=== PATIENT | female | born 1985 | race Caucasian/White ===

== ENCOUNTER → 2017-06-30 15:08 | Outpatient (CLI) | payer MEDICARE, OTHER, SELFPAY ==
[2017-06-30 17:31] LABS: Hematocrit 36.4 % (37-47); Hemoglobin 11.6 g/dl (12.0-15.0); Mean Corp Hgb Conc 31.9 g/gl (32-36); Mean Corpuscular Hgb 29.4 pg (27.0-32.0); Mean Corpuscular Volume 92.4 fL (81-99); Mean Platelet Vol. 10.2 fl (6.2-12.0); Platelet Count 324 K/mm3 (150-450); RBC Distribution Width CV 13.6 % (11.6-14.6); RBC Distribution Width SD 45.3 fl (35.1-43.9); Red Blood Count 3.94 M/mm3 (4.2-5.4); White Blood Count 4.7 K/mm3 (4.4-11.0)
[2017-06-30 17:34] LABS: Scan Indicated on CBC? Y/N NO
[2017-06-30 17:52] LABS: Vitamin D,25 Hydroxy 13.6 ng/mL (19.95-100.01)
[2017-06-30 17:53] LABS: CRP < 2.90 mg/L (0.0-3.0); Iron 50 ug/dL (50-170)
== END ==
PROVIDERS: Visit Provider Internal Medicine Gastroenterology
DX: K52.9 Noninfective gastroenteritis and colitis, unspecified (principal)
CPT/HCPCS: 36415; 82306; 83540; 85027; 86140

== ENCOUNTER → 2018-02-02 13:48 | Outpatient (CLI) | payer MEDICARE, OTHER, SELFPAY ==
[2018-02-09 20:07] LABS: QNTFERON TB Ag Minus Nil Value < 0 IU/mL (.); QNTFERON TB Ag Value 0.02 IU/mL (.); QNTFERON TB Mitogen Value 6.59 IU/mL (.); QNTFERON TB Nil Value 0.03 IU/mL (.)
[2018-02-10 12:06] LABS: QNTIFERON TB Gold Negative (Negative)
== END ==
PROVIDERS: Referring Provider Internal Medicine Gastroenterology; Visit Provider Internal Medicine Gastroenterology
DX: K51.90 Ulcerative colitis, unspecified, without complications (principal)
CPT/HCPCS: 36415; 86480

== ENCOUNTER → 2018-02-23 10:24 | Outpatient (CLI) | payer MEDICARE, OTHER, SELFPAY ==
[2018-02-23 10:43] VITALS: BP 101/85; PULSE 77; RESP 16; TEMP 36.8; O2SAT 100; BMI 14.3
[2018-02-23] MEDS: MethylPREDNISolone 125 MG/2 ML Vial 60 MG IV (11:22)
[2018-02-23] MEDS: DiphenhydrAMINE 50 MG/ML Syringe 25 MG IV (12:30)
== END ==
PROVIDERS: Referring Provider Internal Medicine Gastroenterology; Visit Provider Internal Medicine Gastroenterology
DX: K51.90 Ulcerative colitis, unspecified, without complications (principal)
CPT/HCPCS: 96365; 96375; 96376; J7040; J7050; A4216; J3380

== ENCOUNTER 2018-02-25 18:48 | Inpatient (IN) | payer MEDICARE, OTHER, SELFPAY ==
[2018-02-25 18:49] VITALS: BP 111/96; PULSE 83; RESP 16; TEMP 36.8; O2SAT 100; BMI 14.3
[2018-02-25 19:06] LABS: Bacteria 0 SEEN /hpf (None Seen); Mucous, Urine 0 SEEN /hpf (<or=2+); Red Blood Cells-Urine 0 SEEN /hpf (0-5); Squamous Epithelial Cells - UA 0 SEEN /hpf (5-10); White Blood Cells 0 SEEN /hpf (0-5)
[2018-02-25 19:08] LABS: Color, Urine Yellow (Yellow); Glucose, Dipstick Normal (Normal); Ketone-Dipstick 50 mg/dl (Negative); Leukocyte Esterase-Dipstick Negative /ul (Negative); Nitrite-Dipstick Negative (Negative); Occult Blood-Urine Negative /ul (Negative); Protein-Dipstick Negative (Negative); Specific Gravity, Urine 1.015 (1.002-1.030); Urine Bilirubin Dipstick Negative (Negative); Urine Clarity Cloudy (Clear); Urine Urobilinogen Normal (Normal)
--- NOTE | 2018-02-25 19:09 | ED.VISSUMM ---
- ER Visit Summary Date of Service: 02/25/18 Chief Complaint: Abdominal pain with bloody diarrhea History of Present Illness: The patient is a 32 F history of ulcerative colitis past 13 years. Under the care currently of Dr. Amador of gastroenterology. She had her first IV infusion on Monday. For the last week she has had loose to watery stools with bright red blood. She denies any vaginal bleeding or discharge. She denies any dysuria. She has had episodes like this before with her ulcerative colitis. She also has a history of endometriosis. She has had a prior cholecystectomy. She had a prior ileostomy with reversal. Physical Examination: Young female. Vital signs are stable. She is afebrile. She does not look septic or toxic. She is very thin. Cachectic and wasted. H EENT exam unremarkable. Moist mucous membranes. Neck nontender. No lymphadenopathy. Lungs clear to auscultation bilaterally. Heart regular rhythm rate about 80 no murmur. Abdomen is soft. Nondistended. Normal bowel sounds. No peritoneal signs. She is tender in the very low lower quadrants bilaterally. No hernias. No masses. No McBurney's point tenderness. No English sign. No signs of obstruction. She is moving all 4 extremities. They are neurovascularly intact. Her legs are thin and wasted. There is muscular atrophy. Skin is pale. Back nontender. Neurologically she is awake and alert with no focal motor deficits. Test Results: CBC shows a white count of 5. Hemoglobin of 12. Previously the hemoglobin was around 11 6. Chemistries normal. Gap 7. Normal BUN and creatinine. Liver enzymes unremarkable except for alk phos of 125. UA normal. Except for urine ketones consistent with dehydration. Serum test negative. Emergency Department Course and Treatment: Patient treated with IV fluids. IV Zofran and morphine for pain and nausea. Treatment Plan: Repeat exams the patient is doing some better after IV fluids and IV Zofran. I have both the hospitalist and the patient's outplacement consultant on page. Disposition: Admission Impression: Acute exacerbation of ulcerative colitis. Acute nausea, vomiting and bloody diarrhea Acute abdominal pain This note was generated with RTF Logication software. It may contain incorrect words, spelling, and punctuation that were not noted in review of the chart prior to signing ED Disposition - Plan for ED Patient: Chief Complaint: Abd Pain Referrals: [facility] Doctor,Out of [Primary Care Provider] -
--- NOTE | 2018-02-25 19:12 | ED.DCSUM_ITS ---
- ER Visit Summary Date of Service: 02/25/18 Chief Complaint: Abdominal pain with bloody diarrhea History of Present Illness: The patient is a 32 F history of ulcerative colitis past 13 years. Under the care currently of Dr. Amador of gastroenterology. She had her first IV infusion on Monday. For the last week she has had loose to watery stools with bright red blood. She denies any vaginal bleeding or discharge. She denies any dysuria. She has had episodes like this before with her ulcerative colitis. She also has a history of endometriosis. She has had a prior cholecystectomy. She had a prior ileostomy with reversal. Physical Examination: Young female. Vital signs are stable. She is afebrile. She does not look septic or toxic. She is very thin. Cachectic and wasted. H EENT exam unremarkable. Moist mucous membranes. Neck nontender. No lymphadenopathy. Lungs clear to auscultation bilaterally. Heart regular rhythm rate about 80 no murmur. Abdomen is soft. Nondistended. Normal bowel sounds. No peritoneal signs. She is tender in the very low lower quadrants bilaterally. No hernias. No masses. No McBurney's point tenderness. No English sign. No signs of obstruction. She is moving all 4 extremities. They are neurovascularly intact. Her legs are thin and wasted. There is muscular atrophy. Skin is pale. Back nontender. Neurologically she is awake and alert with no focal motor deficits. Test Results: CBC shows a white count of 5. Hemoglobin of 12. Previously the hemoglobin was around 11 6. Chemistries normal. Gap 7. Normal BUN and creatinine. Liver enzymes unremarkable except for alk phos of 125. UA normal. Except for urine ketones consistent with dehydration. Serum test negative. Emergency Department Course and Treatment: Patient treated with IV fluids. IV Zofran and morphine for pain and nausea. Treatment Plan: Repeat exams the patient is doing some better after IV fluids and IV Zofran. I have both the hospitalist and the patient's education counselor on page. Disposition: Admission Impression: Acute exacerbation of ulcerative colitis. Acute nausea, vomiting and bloody diarrhea Acute abdominal pain This note was generated with Evriation software. It may contain incorrect words, spelling, and punctuation that were not noted in review of the chart prior to signing ED Disposition - Plan for ED Patient: Chief Complaint: Abd Pain Referrals: [facility] Doctor,Out of [Primary Care Provider] -
[2018-02-25 19:20] LABS: Amorphous Sediment 2+
[2018-02-25] MEDS: Morphine 4 MG/ML Syringe IV ×2 (19:23→21:19)
[2018-02-25] MEDS: 0.9% Normal Saline 1,000 ML 1000 ML IV (19:23)
[2018-02-25] MEDS: Ondansetron 4 MG/2 ML Vial IV ×3 (19:23→23:09)
[2018-02-25 19:30] LABS: Absolute Lymphocyte Count 1.42 X10^3/ul (0.83-4.51); Absolute Neutrophil Count 3.6 X10^3/uL (2.0-7.7); Basophil# 0.04 X10^3/uL; Basophil% 0.7 % (0-1); Eosinophil# 0.13 X10^3/uL; Eosinophils% 2.3 % (0-5); Hematocrit 38.6 % (37-47); Hemoglobin 12.1 g/dl (12.0-15.0); Lymphocyte # 1.42 X10^3/ul (4.0); Mean Corp Hgb Conc 31.3 g/gl (32-36); Mean Corpuscular Volume 89.4 fL (81-99); Mean Platelet Vol. 8.9 fl (6.2-12.0); Monocyte# 0.51 X10^3/uL; Neutrophil # 3.56 X10^3/uL (2.7-7.7); Neutrophil % 62.6 % (47-70); Platelet Count 398 K/mm3 (150-450); RBC Distribution Width CV 13.6 % (11.6-14.6); RBC Distribution Width SD 44.7 fl (35.1-43.9); Red Blood Count 4.32 M/mm3 (4.2-5.4); White Blood Count 5.7 K/mm3 (4.4-11.0)
[2018-02-25 19:31] LABS: POSITIVE COUNT NO; POSITIVE DIFFERENTIAL NO; POSITIVE MORPHOLOGY NO
[2018-02-25 19:48] LABS: AST(SGOT) 20 U/L (15-37); Alanine Aminotransfer ALT/SGPT 17 U/L (13-56); Albumin, Serum 3.4 g/dL (3.2-5.0); Alkaline Phosphatase 125 U/L (45-117); Anion Gap 7 (5-15); BUN 4 mg/dL (7-18); BUN/Creat Ratio 6.2 RATIO (10-20); Bilirubin, Direct 0.09 mg/dL (0.00-0.30); Calcium,Total 8.5 mg/dL (8.5-10.1); Chloride 103 mmol/L (98-107); Creatinine, Serum 0.65 mg/dL (0.55-1.02); EST Glomerular Filtration Rate 112 mL/min (>60); Est Glom Filt Rate - Afr Amer 136 mL/min (>60); Estimated Creatinine Clearance 82.61 ml/min; Globulin 4.3 g/dL (2.2-4.2); Glucose 74 mg/dL (74-106); Lipase 96 U/L (73-393); Potassium 3.6 mmol/L (3.5-5.1); Protein, Total 7.7 g/dL (6.4-8.2); Sodium Level 137 mmol/L (136-145)
[2018-02-25 19:54] LABS: Pregnancy, Serum, hCG Quali. NEGATIVE Negative (0-9 Nonpreg)
--- NOTE | 2018-02-25 20:24 | PCM.HP.STD ---
Problem List (1) Exacerbation of ulcerative colitis Status: Acute (2) Endometritis Status: Acute History of Present Illness Date of Admission: 02/25/18 Chief Complaint: Nausea, vomiting and diarrhea. The patient is a 32 year old F with a significant history of endometritis and ulcerative colitis who presents with one and half weeks history of progressively worsening diarrhea. Patient reports loose bowel movement every 20-30 minutes. She reports that at times she is unable to get into the bathroom quickly to defecate so she has had to wear depends. Associated with her symptoms is nausea, vomiting and abdominal pain. She describes her abdominal pain as crampy and sharp; more pronounced in her left lower quadrant to pelvic area. Two days before her admission she was started on Entyvio infusion. She also received a Solu-Medrol (?infusion) on the same day. Patient reported that she was on a tapering dose of prednisone but because of worsening of her symptoms she was started back on Prednisone 30mg daily about 6 days ago. She sees Dr. Amador. ED doctor discussed the case with Dr. Amador and it is okay for Dr. Amador for patient to be initiated on steroids; and to call as necessary. Patient reported that previously she had an ileostomy but her ileostomy was reversed about 2 years ago. She reports that because of diarrhea she is unable to keep any weight on. Reports that because she is under weight she has not had her menses in the last 1-1/2 year. Past Medical History Medical History: Medical History (Last Reviewed 02/26/18 @ 09:04 by Alexander Koehler MD) Endometriosis N80.9 Ulcerative colitis K51.90 Allergies metoclopramide [From Reglan] Allergy (Verified 02/23/18 10:39) Other NEUROMUSCULAR PROBLEMS amoxicillin [From Augmentin] Adverse Reaction (Verified 02/23/18 10:39) Nausea/Vom/Diarrhea clavulanic acid [From Augmentin] Adverse Reaction (Verified 02/23/18 10:39) Nausea/Vom/Diarrhea Home Medications: Ambulatory Orders Medication Instructions Recorded Acetaminophen [Tylenol Extra 500 - 1,000 mg PO Q6H PRN PRN 02/25/18 Strength] Diphenoxylate/Atrop [Lomotil] 2 tab PO PRN PRN 02/25/18 Eszopiclone 1 mg PO QHS 02/25/18 Ondansetron [Zofran Odt] 4 mg PO 4X/DAY PRN PRN 02/25/18 Prednisone 30 mg PO DAILY 02/25/18 Surgical History: - - Ileostomy with subsequent reversal Lives: With Family Smoking Status: Never smoker Alcohol: Occasional - *Family History Maternal Family History: Family History (Last Updated 02/25/18 @ 22:14 by Alexander Koehler MD) Father Hypertension Paternal Family History: Family History (Last Updated 02/25/18 @ 22:14 by Alexander Koehler MD) Father Hypertension Review of Systems Constitutional: Reports: Anorexia. Denies: Chills, Fever HEENT: Denies: Head Aches, Sinus Congestion, Sinus Drainage Cardiovascular: Denies: Chest Pain, Palpitations Respiratory: Denies: Cough, Shortness of breath at rest, Sputum production Gastrointestinal: Reports: Abdominal Pain, Diarrhea, Nausea, Vomiting Genitourinary: Denies: Dysuria Musculoskeletal: Denies: Joint Pain, Joint Tenderness Skin: Denies: Rash, Wounds Neurological: Denies: Numbness, Tingling, Focal weakness Psychiatric: Denies: Anxiety, Depression, Homicidal Ideations, Suicidal Ideations Hematologic/ Lymphatic: Denies: Easy Bruising, Easy Bleeding VTE Information - Inpt Only VTE Present on Admission: No VTE Mechan Device Prophylaxis: None VTE Pharm Prophylaxis ordered?: Yes Patient Problems: Active and Suspected Problems (Last Updated 02/25/18 @ 22:13 by Alexander Koehler MD) Exacerbation of ulcerative colitis (Acute) Endometritis (Acute) - Physical Exam General: Alert, Oriented x3, Cooperative, - - Cachectic HEENT: Atraumatic, PERRLA, EOMI, Normocephalic Neck: Supple, No JVD, Negative Carotid Bruits Lungs: Clear to auscultation, Normal air movement Cardiovascular: Regular rate, No murmurs Abdomen: Bowel Sounds Present - Hyperbaric, Soft, Tender - Tender in bilateral lower abdomen, - - Scaphoid abdomen Extremities: No edema, Capillary Refill Less than 3 Seconds Skin: No rashes, No breakdown Musculoskeletal: No Tenderness to Palpation of Joints or Extremities Neurological: Cranial nerves II-XII grossly intact Psych/Mental Status: Normal Affect, Appropriate, - - The patient was crying secondary to pain and emotion due to her chronic disease. Vital Signs Temp Pulse Resp BP Pulse Ox 98.3 F 83 16 111/96 H 100 02/25/18 18:49 02/25/18 18:49 02/25/18 18:49 02/25/18 18:49 02/25/18 18:49 Oxygen Delivery Method Room Air Weight: 41.73 kg Body Mass Index (BMI) 14.3 Laboratory Tests Past 24 Hrs 02/25/18 02/25/18 02/25/18 19:00 19:20 19:20 WBC 5.7 RBC 4.32 Hgb 12.1 Hct 38.6 MCV 89.4 MCH 28.0 MCHC 31.3 L RDW 13.6 RDW Differential 44.7 H Plt Count 398 MPV 8.9 Immature Gran % (Auto) 0.400 Neut % (Auto) 62.6 Lymph % (Auto) 25.0 [place] % (Auto) 9.0 Eos % (Auto) 2.3 Baso % (Auto) 0.7 Absolute Neuts (auto) 3.6 Absolute Lymphs (auto) 1.42 Total Counted Not Reportable Sodium 137 Potassium 3.6 Chloride 103 Carbon Dioxide 27.0 Anion Gap 7 BUN 4 L Creatinine 0.65 Estim Creat Clear Calc 82.61 Est GFR (MDRD) Af Amer 136 Est GFR (MDRD) Non-Af 112 BUN/Creatinine Ratio 6.2 L Glucose 74 Calcium 8.5 Total Bilirubin 0.40 Direct Bilirubin 0.09 AST 20 ALT 17 Alkaline Phosphatase 125 H Total Protein 7.7 Albumin 3.4 Globulin 4.3 H Lipase 96 Serum , Qual Urine Color Yellow Urine Clarity Cloudy Urine pH 9.0 Ur Specific [place] 1.015 Urine Protein Negative Urine Glucose (UA) Normal Urine Ketones 50 H Urine Occult Blood Negative Urine Nitrite Negative Urine Bilirubin Negative Urine Urobilinogen Normal Ur Leukocyte Esterase Negative Urine RBC 0 SEEN Urine WBC 0 SEEN Ur Squamous Epith Cells 0 SEEN Amorphous Sediment 2+ Urine Bacteria 0 SEEN Urine Mucus 0 SEEN 02/25/18 19:20 WBC RBC Hgb Hct MCV MCH MCHC RDW RDW Differential Plt Count MPV Immature Gran % (Auto) Neut % (Auto) Lymph % (Auto) [place] % (Auto) Eos % (Auto) Baso % (Auto) Absolute Neuts (auto) Absolute Lymphs (auto) Total Counted Sodium Potassium Chloride Carbon Dioxide Anion Gap BUN Creatinine Estim Creat Clear Calc Est GFR (MDRD) Af Amer Est GFR (MDRD) Non-Af BUN/Creatinine Ratio Glucose Calcium Total Bilirubin Direct Bilirubin AST ALT Alkaline Phosphatase Total Protein Albumin Globulin Lipase Serum , Qual NEGATIVE Urine Color Urine Clarity Urine pH Ur Specific [place] Urine Protein Urine Glucose (UA) Urine Ketones Urine Occult Blood Urine Nitrite Urine Bilirubin Urine Urobilinogen Ur Leukocyte Esterase Urine RBC Urine WBC Ur Squamous Epith Cells Amorphous Sediment Urine Bacteria Urine Mucus Assessment/Plan All Active Problems (Last Updated 02/25/18 @ 22:13 by Alexander Koehler MD) Exacerbation of ulcerative colitis (Acute) Endometritis (Acute) The patient is a 32 year old F with a significant history of protein calorie malnutrition; endometritis and ulcerative colitis who received Entyvio infusion and Solu-Medrol IV about 2 days ago and on prednisone p.o. presenting with progressively worsening diarrhea concerning for flare of ulcerative colitis. Exacerbation of ulcerative colitis Received Solu-Medrol IV at emergency department Solu-Medrol continued. Consider conversation with Dr. Amador if necessary Protein calorie malnutrition BMI of 14.5 which shows severe protein calorie malnutrition. Patient is on clear liquids now because of intractable nausea and vomiting Prealbumin and albumin level ordered. Dietitian consult for recommendations in the long-term. DVT prophylax With a history of ulcerative colitis she is at risk of blood clots DVT prophylaxis with Lovenox. Code Visit Inpatient E&M: 48958 Init Hosp L3
[2018-02-25 20:35] VITALS: BP 129/90; PULSE 94; RESP 16; O2SAT 96
[2018-02-25] MEDS: MethylPREDNISolone 125 MG/2 ML Vial IV (20:40)
[2018-02-25 21:39] VITALS: BMI 14.5
[2018-02-25 21:54] VITALS: BP 105/79; PULSE 65; RESP 16; TEMP 36.6; O2SAT 100
[2018-02-25 21:58] LABS: Albumin, Serum 3.3 g/dL (3.2-5.0); Prealbumin 13.6 mg/dL (20.0-40.0)
[2018-02-25 22:40] VITALS: O2SAT 96
[2018-02-25] MEDS: 0.9% NaCl Peripheral Flush Adult/Peds IV (23:09)
[2018-02-26] MEDS: Lactated Ringers 1,000 ML 100 ML IV (00:39)
[2018-02-26] MEDS: proMETHazine 25 MG/ML Syringe 12.5 MG IV ×4 (00:40→20:22)
[2018-02-26] MEDS: 0.9% NaCl Peripheral Flush Adult/Peds IV ×10 (00:40→23:16)
[2018-02-26] MEDS: Morphine 4 MG/ML Syringe IV ×4 (01:12→13:51)
[2018-02-26 05:23] VITALS: BP 97/62; PULSE 60; RESP 16; TEMP 36.6; O2SAT 100
[2018-02-26] MEDS: Ondansetron 4 MG/2 ML Vial IV ×3 (05:25→19:08)
[2018-02-26 07:30] VITALS: O2SAT 96
[2018-02-26 07:44] LABS: Anion Gap 9 (5-15); BUN 5 mg/dL (7-18); BUN/Creat Ratio 6.8 RATIO (10-20); Calcium,Total 8.9 mg/dL (8.5-10.1); Chloride 102 mmol/L (98-107); Creatinine, Serum 0.74 mg/dL (0.55-1.02); EST Glomerular Filtration Rate 97 mL/min (>60); Est Glom Filt Rate - Afr Amer 117 mL/min (>60); Estimated Creatinine Clearance 72.96 ml/min; Glucose 101 mg/dL (74-106); Potassium 3.9 mmol/L (3.5-5.1); Sodium Level 140 mmol/L (136-145)
[2018-02-26 07:49] LABS: Absolute Lymphocyte Count 1.01 X10^3/ul (0.83-4.51); Absolute Neutrophil Count 4.6 X10^3/uL (2.0-7.7); Basophil# 0.02 X10^3/uL; Basophil% 0.3 % (0-1); Eosinophil# 0.01 X10^3/uL; Eosinophils% 0.2 % (0-5); Hemoglobin 11.3 g/dl (12.0-15.0); Lymphocyte # 1.01 X10^3/ul (4.0); Lymphocyte % 17.2 % (19-41); Mean Corp Hgb Conc 31.4 g/gl (32-36); Mean Corpuscular Hgb 28.6 pg (27.0-32.0); Mean Corpuscular Volume 91.1 fL (81-99); Mean Platelet Vol. 9.5 fl (6.2-12.0); Monocyte# 0.17 X10^3/uL; Monocyte% 2.9 % (0-10); Neutrophil # 4.64 X10^3/uL (2.7-7.7); Neutrophil % 78.9 % (47-70); Platelet Count 418 K/mm3 (150-450); RBC Distribution Width CV 13.4 % (11.6-14.6); RBC Distribution Width SD 44.2 fl (35.1-43.9); Red Blood Count 3.95 M/mm3 (4.2-5.4); White Blood Count 5.9 K/mm3 (4.4-11.0)
[2018-02-26 08:06] LABS: POSITIVE COUNT NO; POSITIVE DIFFERENTIAL NO; POSITIVE MORPHOLOGY NO
[2018-02-26] MEDS: Enoxaparin 40 MG/0.4 ML Syringe SC (09:22)
[2018-02-26] MEDS: MethylPREDNISolone 125 MG/2 ML Vial 60 MG IV (09:25)
[2018-02-26 09:31] VITALS: BP 102/60; PULSE 54; RESP 18; TEMP 36.5; O2SAT 100
--- NOTE | 2018-02-26 11:00 | CASEMGMT ---
RN CM Assessment: Intro role of CM to patient in room. Pt is awake, alert and able to participate in RN CM Assessment. Pt w/ exacerbation of ulcerative colitis. Receiving IVF, IV Solumedrol. Pt states she has not been able to eat at home. Humanities Teacher in to see pt earlier. PCP: Dr. Wisdom Specialist: Dr. Amador [facility]acy: [facility] Prescription coverage: yes Living arrangements: Lives independently with her LNOK: DME: none Transportation: Pt states she drives, no transportation issues. DC PLAN: Home, no needs identified.
[2018-02-26 13:30] VITALS: BP 115/73; PULSE 71; RESP 18; TEMP 37.1; O2SAT 99
[2018-02-26] MEDS: morphine 10 MG/ML Syringe IV ×3 (17:07→23:22)
[2018-02-26] MEDS: 0.9% Normal Saline 1,000 ML 175 ML IV (17:14)
--- NOTE | 2018-02-26 18:02 | PN_ITS ---
Patient Problems: Active and Suspected Problems (Last Reviewed 02/26/18 @ 09:04 by Alexander Koehler MD) Exacerbation of ulcerative colitis (Acute) Subjective: Patient was seen and examined today, I had a long discussion with her concerning her ulcerative colitis. Patient received Entyvio a few days ago at the direction of her GI physician Dr. Amador. I talked with Dr. Amador by phone today he states that he may take as long as another week for the medicine to take effect, he recommended continuing IV corticosteroids and possibly placing the patient on mesalamine. Patient has poor venous access and because she will most likely be in the hospital for the next several days I decided to have a PICC line inserted-this is okay with the patient. - Physical Exam General: Alert, Oriented x3, Cooperative, Well developed HEENT: Atraumatic, PERRLA, EOMI, Normocephalic Oral: Moist Mucosa Neck: Supple, No Nuchal Rigidity, Trachea Midline, Thyroid Normal Size and Texture Lungs: Clear to auscultation, Normal air movement, No rhonchi, No wheeze, No rales Cardiovascular: Regular rate, Regular Rhythm, Normal S1, Normal S2, No murmurs Abdomen: Bowel Sounds Present, Soft, Non-Distended, Tender - She has some mild left lower quadrant abdominal tenderness to palpation Extremities: No clubbing, No cyanosis, No edema, Capillary Refill Less than 3 Seconds Skin: No rashes, No breakdown Musculoskeletal: Cachexia, Muscle Wasting Neurological: Cranial nerves II-XII grossly intact, Neuro grossly intact, Sensory exam intact to light touch and pain, Coordination normal Psych/Mental Status: Normal Affect, Appropriate, Alert and oriented to time, place, person, mood and affect Vital Signs Temp Pulse Resp BP Pulse Ox 98.8 F 71 18 115/73 99 02/26/18 13:30 02/26/18 13:30 02/26/18 13:30 02/26/18 13:30 02/26/18 13:30 Oxygen Delivery Method Room Air Weight: 41.957 kg Body Mass Index (BMI) 14.5 Intake and Output for Last 24 Hours 02/24/18 02/25/18 02/26/18 23:59 23:59 23:59 Intake Total 1177 / 1177 Output Total 150 / 150 Balance 1027 / 1027 Laboratory Tests Past 24 Hrs 02/25/18 02/25/18 02/25/18 19:00 19:20 19:20 WBC 5.7 RBC 4.32 Hgb 12.1 Hct 38.6 MCV 89.4 MCH 28.0 MCHC 31.3 L RDW 13.6 RDW Differential 44.7 H Plt Count 398 MPV 8.9 Immature Gran % (Auto) 0.400 Neut % (Auto) 62.6 Lymph % (Auto) 25.0 [place] % (Auto) 9.0 Eos % (Auto) 2.3 Baso % (Auto) 0.7 Absolute Neuts (auto) 3.6 Absolute Lymphs (auto) 1.42 Total Counted Not Reportable Sodium 137 Potassium 3.6 Chloride 103 Carbon Dioxide 27.0 Anion Gap 7 BUN 4 L Creatinine 0.65 Estim Creat Clear Calc 82.61 Est GFR (MDRD) Af Amer 136 Est GFR (MDRD) Non-Af 112 BUN/Creatinine Ratio 6.2 L Glucose 74 Calcium 8.5 Total Bilirubin 0.40 Direct Bilirubin 0.09 AST 20 ALT 17 Alkaline Phosphatase 125 H Total Protein 7.7 Albumin 3.4 Globulin 4.3 H Prealbumin Lipase 96 Serum , Qual Urine Color Yellow Urine Clarity Cloudy Urine pH 9.0 Ur Specific [place] 1.015 Urine Protein Negative Urine Glucose (UA) Normal Urine Ketones 50 H Urine Occult Blood Negative Urine Nitrite Negative Urine Bilirubin Negative Urine Urobilinogen Normal Ur Leukocyte Esterase Negative Urine RBC 0 SEEN Urine WBC 0 SEEN Ur Squamous Epith Cells 0 SEEN Amorphous Sediment 2+ Urine Bacteria 0 SEEN Urine Mucus 0 SEEN 02/25/18 02/25/18 02/26/18 19:20 19:20 07:00 WBC 5.9 RBC 3.95 L Hgb 11.3 L Hct 36.0 L MCV 91.1 MCH 28.6 MCHC 31.4 L RDW 13.4 RDW Differential 44.2 H Plt Count 418 MPV 9.5 Immature Gran % (Auto) 0.500 Neut % (Auto) 78.9 H Lymph % (Auto) 17.2 L [place] % (Auto) 2.9 Eos % (Auto) 0.2 Baso % (Auto) 0.3 Absolute Neuts (auto) 4.6 Absolute Lymphs (auto) 1.01 Total Counted Not Reportable Sodium Potassium Chloride Carbon Dioxide Anion Gap BUN Creatinine Estim Creat Clear Calc Est GFR (MDRD) Af Amer Est GFR (MDRD) Non-Af BUN/Creatinine Ratio Glucose Calcium Total Bilirubin Direct Bilirubin AST ALT Alkaline Phosphatase Total Protein Albumin 3.3 Globulin Prealbumin 13.6 L Lipase Serum , Qual NEGATIVE Urine Color Urine Clarity Urine pH Ur Specific [place] Urine Protein Urine Glucose (UA) Urine Ketones Urine Occult Blood Urine Nitrite Urine Bilirubin Urine Urobilinogen Ur Leukocyte Esterase Urine RBC Urine WBC Ur Squamous Epith Cells Amorphous Sediment Urine Bacteria Urine Mucus 02/26/18 07:00 WBC RBC Hgb Hct MCV MCH MCHC RDW RDW Differential Plt Count MPV Immature Gran % (Auto) Neut % (Auto) Lymph % (Auto) [place] % (Auto) Eos % (Auto) Baso % (Auto) Absolute Neuts (auto) Absolute Lymphs (auto) Total Counted Sodium 140 Potassium 3.9 Chloride 102 Carbon Dioxide 29.0 Anion Gap 9 BUN 5 L Creatinine 0.74 Estim Creat Clear Calc 72.96 Est GFR (MDRD) Af Amer 117 Est GFR (MDRD) Non-Af 97 BUN/Creatinine Ratio 6.8 L Glucose 101 Calcium 8.9 Total Bilirubin Direct Bilirubin AST ALT Alkaline Phosphatase Total Protein Albumin Globulin Prealbumin Lipase Serum , Qual Urine Color Urine Clarity Urine pH Ur Specific [place] Urine Protein Urine Glucose (UA) Urine Ketones Urine Occult Blood Urine Nitrite Urine Bilirubin Urine Urobilinogen Ur Leukocyte Esterase Urine RBC Urine WBC Ur Squamous Epith Cells Amorphous Sediment Urine Bacteria Urine Mucus Medical Necessity - Tobacco Use Smoking Status: Never smoker Assessment/Plan All Active Problems (Last Reviewed 02/26/18 @ 09:04 by Alexander Koehler MD) Exacerbation of ulcerative colitis (Acute) #1 acute exacerbation of ulcerative colitis-I increased the patient's IV Solu- Medrol to 40 mg IV every 8 hours, I placed her on mesalamine 400 mg 4 times a day by capsule, I will place her on IV normal saline at 150 cc/h, PICC line will be placed. Again we do not have gastroenterology service here at the hospital, Dr. Amador does not come to the hospital any longer. #2 caloric and protein malnutrition-patient's BMI is 14.5, nutritional services are seeing the patient Code Visit Inpatient E&M: 64305 Subs Hosp L2
--- NOTE | 2018-02-26 18:45 | RAD_ITS ---
STUDY: X-RAY CHEST REASON FOR EXAM: Female, 32 years old. PICC line placement. TECHNIQUE: Portable upright chest. COMPARISON: None. FINDINGS: Right-sided PICC line terminates in the superior vena cava. The lungs are clear and expanded. There is no demonstrated pleural abnormality. Normal size heart. Normal mediastinum and norberto. Normal visualized pulmonary arteries. Normal visualized aortic arch and descending thoracic aorta. Normal visualized thoracic spine. Normal visualized ribs, clavicles, and shoulders. There is no demonstrated abnormality of the visualized soft tissue structures of the upper abdomen. RAD/CXR for Line Placement IMPRESSION: PICC line terminates in the right SVC. No acute process. Electronically Signed: Letty Mendenhall MD at 19:12 EDT Tel , Service support ,
[2018-02-26 20:12] VITALS: BP 121/75; PULSE 72; RESP 18; TEMP 37.1; O2SAT 100
[2018-02-26] MEDS: MESALAMINE 400 MG CAPSULE.DR PO (21:52)
[2018-02-26] MEDS: Zolpidem Tartrate 5 MG Tablet PO (21:52)
[2018-02-27] MEDS: Ondansetron 4 MG/2 ML Vial IV ×4 (01:14→23:47)
[2018-02-27] MEDS: 0.9% NaCl Peripheral Flush Adult/Peds IV ×10 (01:14→23:47)
[2018-02-27] MEDS: 0.9% Normal Saline 1,000 ML 175 ML IV ×4 (01:18→21:10)
[2018-02-27] MEDS: morphine 10 MG/ML Syringe IV ×2 (02:29→06:25)
[2018-02-27] MEDS: proMETHazine 25 MG/ML Syringe 12.5 MG IV ×2 (02:38→08:50)
[2018-02-27 02:41] VITALS: BP 118/70; PULSE 70; RESP 18; TEMP 37.1; O2SAT 99
[2018-02-27 07:56] VITALS: O2SAT 95
[2018-02-27 08:15] VITALS: BP 139/88; PULSE 68; RESP 16; TEMP 36.4; O2SAT 100
[2018-02-27] MEDS: Diphenoxylate/Atrop 1 Tablet 2 TABLET PO (08:52)
[2018-02-27] MEDS: oxyCODONE 5 MG Tablet PO (08:54)
[2018-02-27] MEDS: Morphine 4 MG/ML Syringe IV (10:18)
[2018-02-27] MEDS: Menthol/Lanolin/Calamine/Znox 113 GM Tube 1 APPLIC TOPICAL ×4 (11:22→21:11)
--- NOTE | 2018-02-27 11:39 | PN_ITS ---
Patient Problems: Active and Suspected Problems (Last Reviewed 02/26/18 @ 09:04 by Alexander Koehler MD) Exacerbation of ulcerative colitis (Acute) Subjective: Patient is a 32-year-old female with a history of ulcerative colitis who comes in with ulcerative colitis flare and abdominal pain associated with nausea and vomiting. At this time, patient reports that she has continued abdominal pain despite morphine. Also with several episodes of nausea and vomiting, stating that she has been throwing up anywhere from 5-6 times a day. With left lower quadrant tenderness, similar to prior episodes of UC flare. Reports she was started on Entyvio last Monday, has failed other therapy in the past. Reports that her as well as 8-year-old had similar symptoms last week and she developed nonspecific joint pain, fevers/chills with the onset of her abdominal pain. Reports 5-6 episodes of hematochezia overnight. With some improvement with morphine however she continues to have pain in that medications appear to wear off. Reports some minimal lower extremity swelling, also has noticed some redness on her face today. States her c engineer did stool studies last which were reportedly negative for ova and parasites, C. difficile and stool cultures. She reports that if her current Entyvio does not help, she was told that she might need surgery. Vitals/I&O's: Vital Signs Temp Pulse Resp BP Pulse Ox 97.6 F L 68 16 139/88 H 100 02/27/18 08:15 02/27/18 08:15 02/27/18 08:15 02/27/18 08:15 02/27/18 08:15 Oxygen Delivery Method Room Air Weight: 41.957 kg Body Mass Index (BMI) 14.5 Intake and Output for Last 24 Hours 02/25/18 02/26/18 02/27/18 23:59 23:59 23:59 Intake Total 2485 / 2485 1155 / 1155 Output Total 150 / 150 Balance 2335 / 2335 1155 / 1155 General: Alert, Oriented x3, Cooperative HEENT: Normocephalic Oral: Moist Mucosa Neck: Supple Lungs: Clear to auscultation, Normal air movement Cardiovascular: Regular rate, No murmurs Abdomen: Soft, Hyperactive Bowel Sounds, Tender - Left lower quadrant tenderness but no rebound, no guarding Extremities: No edema, Capillary Refill Less than 3 Seconds Skin: No breakdown, - - With noted splotchy macular areas on her face, bottom and back with minimal pruritus Musculoskeletal: No Tenderness to Palpation of Joints or Extremities Neurological: Cranial nerves II-XII grossly intact Psych/Mental Status: Normal Affect - Slightly tearful on exam., Appropriate Current Medications Acetaminophen (Tylenol) 650 mg PO Q6H PRN PRN PRN Reason: Mild Pain (1-3)/Temp > 100.7 F Calamine/Phenol (Calmoseptine Ointment) 1 applic TOPICAL 4X/DAY [facility]; Protocol Last Admin: 02/27/18 11:22 Dose: 1 applicatio Diphenoxylate HCl/Atropine (Lomotil) 2 tablet PO 4X/DAY PRN PRN PRN Reason: Diarrhea Last Admin: 02/27/18 08:52 Dose: 2 tablet Sodium Chloride () 1,000 mls @ 175 mls/hr IV .[id number] [facility] Last Admin: 02/27/18 06:28 Dose: 175 mls/hr Mesalamine (Delzicol) 400 mg PO 4X/DAY [facility] Last Admin: 02/26/18 21:52 Dose: 400 mg Methylprednisolone (Solu-Medrol) 40 mg IV Q8 [facility] Last Admin: 02/27/18 06:16 Dose: 40 mg Morphine Sulfate () 2 - 4 mg IV Q4H PRN PRN PRN Reason: MOD-SEVERE PAIN (4-10/10) Morphine Sulfate () 4 - 6 mg IV Q3H PRN PRN PRN Reason: MOD-SEVERE PAIN (4-10/10) Last Admin: 02/27/18 10:18 Dose: 6 mg Morphine Sulfate () 4 - 6 mg IV Q3H PRN PRN PRN Reason: MOD-SEVERE PAIN (4-10/10) Last Admin: 02/27/18 06:25 Dose: 6 mg Nutritional Formula (Lactose Free) (Ensure Enlive) 120 ml PO 4X/DAY [facility] Last Admin: 02/27/18 11:14 Dose: Not Given Ondansetron HCl (Zofran) 4 mg IV Q6H PRN PRN PRN Reason: NAUSEA/VOMITING Last Admin: 02/27/18 10:09 Dose: 4 mg Oxycodone HCl (Oxyir) 5 - 10 mg PO Q4H PRN PRN PRN Reason: MOD-SEVERE PAIN (4-10/10) Last Admin: 02/27/18 08:54 Dose: 5 mg Promethazine HCl (Phenergan) 12.5 mg IV Q6H PRN PRN PRN Reason: NAUSEA/VOMITING Last Admin: 02/27/18 08:50 Dose: 12.5 mg Sodium Chloride () 5 - 30 ml IV UD PRN PRN Reason: SALINE FLUSH Last Admin: 02/27/18 10:09 Dose: 10 ml Zolpidem Tartrate (Ambien (Generic)) 5 mg PO QHS [facility] Last Admin: 02/26/18 21:52 Dose: 5 mg Medical Necessity - Tobacco Use Smoking Status: Never smoker Assessment/Plan All Active Problems (Last Reviewed 02/26/18 @ 09:04 by Alexander Koehler MD) Exacerbation of ulcerative colitis (Acute) Patient is a 32-year-old female with a history of ulcerative colitis, recently started on Entyvio, who was admitted for hematochezia, nausea and vomiting associated with UC flare. 1. Ulcerative colitis flare with hematochezia, nausea vomiting * With continued left lower quadrant pain with hematochezia nausea and vomiting despite conservative management with steroids and mesalamine. Patient has been unable to keep down both oral and rectal mesalamine. We will increase steroids to 60 mg 3 times a day. Add empiric IV antibiotics with ciprofloxacin and Flagyl. Stool studies as an outpatient were reportedly negative. Will check a CT of the abdomen and pelvis at this time, given progression of symptoms. May need surgical evaluation if CT abdomen and pelvis is abnormal. Continue with pain control, change morphine to Dilaudid, add Benadryl given macular rash and itching. Will also change Phenergan to 25 mg (her home dose) as well as Zofran 8 mg ODT (home dose). 2. Normocytic anemia, with acute blood loss anemia * Secondary to hematochezia associated with above. Repeat labs are pending this morning. Continue to monitor H&H and transfuse as needed. Give her 1 dose of IV iron. 3. Malnutrition, moderate, BMI 14 * Patient has had difficulty with tolerating a full liquid diet given intractable nausea and vomiting. May advance diet and add supplemental protein shakes once ulcerative colitis flare appears to be resolving. 4. GI/DVT prophylaxis * Add Protonix, SCDs for DVT prophylaxis. No anticoagulation given h ematochezia. * Await results of CT abdomen and pelvis. May need surgery evaluation pending results of CT. Adjust pain medications and anti-emetics. Continue to monitor H&H. Code Visit Inpatient E&M: 63762 Subs Hosp L3
--- NOTE | 2018-02-27 12:23 | CT_ITS ---
STUDY: CT ABDOMEN AND PELVIS WITH CONTRAST REASON FOR EXAM: Female, 32 years old. Abdominal pain. History of ulcerative colitis. RADIATION DOSAGE (If Supplied By Facility): CTDIvol = ( 9.74 ) mGy, DLP = ( 232.83 ) mGycm TECHNIQUE: Transaxial images were obtained from the dome of the diaphragm to the symphysis pubis without oral contrast. 100 ml of Isovue 300 contrast was administered. Sagittal and coronal images were reconstructed. Individualized dose optimization techniques were used for this CT. COMPARISON: None. FINDINGS: The visualized lung bases are unremarkable. The visualized portions of the heart are within normal limits. Normal liver. There are surgical clips in the gallbladder fossa consistent with a prior cholecystectomy. Normal spleen. Normal pancreas. Normal bilateral adrenal glands. Normal right kidney. Normal left kidney. The aorta is normal in caliber. There is moderate wall thickening of the descending and sigmoid colon with mild haziness of the surrounding mesentery. Findings are consistent with infectious or inflammatory colitis. There is no bowel obstruction. There is mild free fluid in the pelvis. There is no free air or organized collection. Normal urinary bladder. Normal visualized uterus. There is a 1.7 cm fat density lesion in the right adnexa containing a 0.6 cm calcification. This is most consistent with ovarian dermoid. Normal abdominal wall. Normal osseous structures. CT/Abdomen/Pelvis W IV Cont ONLY IMPRESSION: 1. Thick-walled distal colon consistent with infectious or inflammatory colitis. Findings are consistent with clinical history of ulcerative colitis. No perforation or collection. 2. Mild free fluid in the pelvis. 3. A 1.7 cm right ovarian dermoid. Electronically Signed: Letty Mendenhall MD at 16:13 EDT Tel , Service support ,
[2018-02-27] MEDS: DiphenhydrAMINE 50 MG/ML Syringe 25 MG IV ×2 (13:03→19:31)
[2018-02-27] MEDS: MethylPREDNISolone 125 MG/2 ML Vial 60 MG IV ×2 (13:03→22:29)
[2018-02-27] MEDS: HYDROmorphone 0.5 MG/0.5 ML SYRINGE IV ×3 (13:04→21:01)
[2018-02-27 13:27] LABS: Erythrocyte Sedimentation Rate 16 mm/hr (0-20)
[2018-02-27 13:33] LABS: Basophil# 0.01 X10^3/uL; Basophil% 0.2 % (0-1); Hematocrit 30.9 % (37-47); Hemoglobin 9.8 g/dl (12.0-15.0); Lymphocyte % 12.6 % (19-41); Mean Corp Hgb Conc 31.7 g/gl (32-36); Mean Corpuscular Hgb 28.9 pg (27.0-32.0); Mean Corpuscular Volume 91.2 fL (81-99); Mean Platelet Vol. 8.9 fl (6.2-12.0); Monocyte# 0.44 X10^3/uL; Neutrophil # 5.04 X10^3/uL (2.7-7.7); Neutrophil % 79.6 % (47-70); POSITIVE COUNT NO; POSITIVE DIFFERENTIAL NO; POSITIVE MORPHOLOGY NO; Platelet Count 350 K/mm3 (150-450); RBC Distribution Width CV 13.9 % (11.6-14.6); RBC Distribution Width SD 45.3 fl (35.1-43.9); Red Blood Count 3.39 M/mm3 (4.2-5.4); White Blood Count 6.3 K/mm3 (4.4-11.0)
[2018-02-27 13:34] LABS: Prothrombin Time (Protime)PT. 13.6 SECONDS (11.7-14.9)
[2018-02-27 13:44] LABS: ALB/GLOB Ratio 0.8 RATIO (0.9-2.4); AST(SGOT) 18 U/L (15-37); Alanine Aminotransfer ALT/SGPT 17 U/L (13-56); Albumin, Serum 2.6 g/dL (3.2-5.0); Alkaline Phosphatase 93 U/L (45-117); Anion Gap 6 (5-15); BUN 5 mg/dL (7-18); BUN/Creat Ratio 10.7 RATIO (10-20); CRP < 2.90 mg/L (0.0-3.0); Calcium,Total 7.7 mg/dL (8.5-10.1); Chloride 108 mmol/L (98-107); Creatinine, Serum 0.47 mg/dL (0.55-1.02); EST Glomerular Filtration Rate 165 mL/min (>60); Est Glom Filt Rate - Afr Amer 200 mL/min (>60); Estimated Creatinine Clearance 114.87 ml/min; Globulin 3.4 g/dL (2.2-4.2); Glucose 98 mg/dL (74-106); Potassium 3.8 mmol/L (3.5-5.1); Sodium Level 142 mmol/L (136-145)
[2018-02-27 14:15] VITALS: BP 147/103; PULSE 91; RESP 16; TEMP 36.7; O2SAT 100
[2018-02-27] MEDS: Ciprofloxacin 400 MG/200 ML BAG 200 MG IV ×2 (14:34→21:10)
[2018-02-27] MEDS: proMETHazine 25 MG/ML Syringe IV ×2 (14:36→21:02)
[2018-02-27 21:14] VITALS: BP 146/99; PULSE 77; RESP 18; TEMP 36.9; O2SAT 95
--- NOTE | 2018-02-27 21:34 | NURSING ---
PT TEARFUL, CRYING. STATES SHE JUST WANTS TO FEEL BETTER. EXPRESSES CONCERNS RE: MULTIPLE SURGERIES, HOSPITALS, DIAGNOSES, FOR MANY YEARS. EMNOTIONAL SUPPORT PROVIDED. MEDICATED FOR PAIN AND NAUSEA PER TP REQUEST.
--- NOTE | 2018-02-27 23:50 | NURSING ---
PT REQUESTS PAIN MEDICATION. OXYIR AND TYLENOL BOTH OFFERED AND PT REFUSED. STATES SHE'LL WAIT FOR DILAUDID TO BE DUE. MEDICATED FOR NAUSEA PER HER REQUEST.
[2018-02-28] MEDS: HYDROmorphone 0.5 MG/0.5 ML SYRINGE IV ×2 (00:30→06:56)
[2018-02-28] MEDS: 0.9% NaCl Peripheral Flush Adult/Peds IV ×11 (00:30→23:03)
[2018-02-28] MEDS: DiphenhydrAMINE 50 MG/ML Syringe 25 MG IV ×4 (02:02→21:41)
[2018-02-28] MEDS: proMETHazine 25 MG/ML Syringe IV ×5 (03:31→23:03)
[2018-02-28] MEDS: HYDROmorphone 1 MG/ML Syringe IV ×6 (03:31→23:03)
[2018-02-28 03:33] VITALS: BP 115/76; PULSE 84; RESP 18; TEMP 36.8; O2SAT 98
[2018-02-28 05:10] LABS: Absolute Lymphocyte Count 0.56 X10^3/ul (0.83-4.51); Absolute Neutrophil Count 4.8 X10^3/uL (2.0-7.7); Basophil# 0.01 X10^3/uL; Basophil% 0.2 % (0-1); Differential Indicated SCAN CRITERIA MET; Hemoglobin 9.5 g/dl (12.0-15.0); Lymphocyte # 0.56 X10^3/ul (4.0); Lymphocyte % 9.7 % (19-41); Mean Corp Hgb Conc 31.7 g/gl (32-36); Mean Corpuscular Hgb 29.1 pg (27.0-32.0); Mean Platelet Vol. 8.8 fl (6.2-12.0); Monocyte# 0.31 X10^3/uL; Monocyte% 5.4 % (0-10); Neutrophil # 4.82 X10^3/uL (2.7-7.7); Neutrophil % 83.5 % (47-70); POSITIVE COUNT NO; POSITIVE DIFFERENTIAL YES; POSITIVE MORPHOLOGY NO; Platelet Count 338 K/mm3 (150-450); RBC Distribution Width CV 13.6 % (11.6-14.6); RBC Distribution Width SD 44.7 fl (35.1-43.9); Red Blood Count 3.26 M/mm3 (4.2-5.4); White Blood Count 5.8 K/mm3 (4.4-11.0)
[2018-02-28 05:20] LABS: ALB/GLOB Ratio 0.8 RATIO (0.9-2.4); AST(SGOT) 18 U/L (15-37); Alanine Aminotransfer ALT/SGPT 17 U/L (13-56); Albumin, Serum 2.5 g/dL (3.2-5.0); Alkaline Phosphatase 88 U/L (45-117); Anion Gap 7 (5-15); BUN 4 mg/dL (7-18); BUN/Creat Ratio 9.1 RATIO (10-20); Calcium,Total 7.4 mg/dL (8.5-10.1); Chloride 108 mmol/L (98-107); Creatinine, Serum 0.44 mg/dL (0.55-1.02); EST Glomerular Filtration Rate 176 mL/min (>60); Est Glom Filt Rate - Afr Amer 213 mL/min (>60); Estimated Creatinine Clearance 122.71 ml/min; Globulin 3.2 g/dL (2.2-4.2); Glucose 111 mg/dL (74-106); Potassium 3.6 mmol/L (3.5-5.1); Protein, Total 5.7 g/dL (6.4-8.2); Sodium Level 143 mmol/L (136-145)
[2018-02-28 05:30] LABS: Anisocytosis 2+; Differential Comment SCANNED; Hypochromasia 1+
[2018-02-28] MEDS: 0.9% Normal Saline 1,000 ML 175 ML IV (05:56)
[2018-02-28] MEDS: MethylPREDNISolone 125 MG/2 ML Vial 60 MG IV ×3 (06:55→21:45)
[2018-02-28] MEDS: Ondansetron 4 MG/2 ML Vial IV ×2 (06:56→21:41)
[2018-02-28 07:48] VITALS: O2SAT 98
[2018-02-28 08:33] VITALS: BP 137/107; PULSE 97; RESP 16; TEMP 36.9; O2SAT 98
--- NOTE | 2018-02-28 09:46 | PCM.CONS.GEN ---
<Solomon Fontenot - Last Filed: 02/28/18 11:10> Reason for Consult History of Present Illness: The patient is a 32 year old F [] Past Medical History Past Medical History (Chronic Problems): Chronic Problems (Last Reviewed 02/26/18 @ 09:04 by Alexander Koehler MD) Endometritis (Chronic) Medical History: Medical History (Last Reviewed 02/26/18 @ 09:04 by Alexander Koehler MD) Endometriosis N80.9 Ulcerative colitis K51.90 Allergies metoclopramide [From Reglan] Allergy (Verified 02/23/18 10:39) Other NEUROMUSCULAR PROBLEMS amoxicillin [From Augmentin] Adverse Reaction (Verified 02/23/18 10:39) Nausea/Vom/Diarrhea clavulanic acid [From Augmentin] Adverse Reaction (Verified 02/23/18 10:39) Nausea/Vom/Diarrhea Home Medications: Ambulatory Orders Medication Instructions Recorded Acetaminophen [Tylenol Extra 500 - 1,000 mg PO Q6H PRN PRN 02/25/18 Strength] Diphenoxylate/Atrop [Lomotil] 2 tab PO PRN PRN 02/25/18 Eszopiclone 1 mg PO QHS 02/25/18 Ondansetron [Zofran Odt] 4 mg PO 4X/DAY PRN PRN 02/25/18 Prednisone 30 mg PO DAILY 02/25/18 - *Family History Maternal Family History: Family History (Last Updated 02/25/18 @ 22:14 by Alexander Koehler MD) Father Hypertension Paternal Family History: Family History (Last Updated 02/25/18 @ 22:14 by Alexander Koehler MD) Father Hypertension Patient Problems: Active and Suspected Problems (Last Reviewed 02/26/18 @ 09:04 by Alexander Koehler MD) Exacerbation of ulcerative colitis (Acute) - Physical Exam Vital Signs Temp Pulse Resp BP Pulse Ox 98.5 F 97 16 137/107 H 98 02/28/18 08:33 02/28/18 08:33 02/28/18 08:33 02/28/18 08:33 02/28/18 08:33 Oxygen Delivery Method Room Air Weight: 92 lb 7.99 oz Body Mass Index (BMI) 14.5 Intake and Output for Last 24 Hours 02/26/18 02/27/18 02/28/18 23:59 23:59 23:59 Intake Total 2485 / 2485 3337 / 3337 2270 / 2270 Output Total 150 / 150 550 / 550 Balance 2335 / 2335 3337 / 3337 1720 / 1720 Laboratory Tests Past 24 Hrs 02/27/18 02/27/18 02/27/18 13:00 13:00 13:00 WBC 6.3 RBC 3.39 L Hgb 9.8 L Hct 30.9 L MCV 91.2 MCH 28.9 MCHC 31.7 L RDW 13.9 RDW Differential 45.3 H Plt Count 350 MPV 8.9 Immature Gran % (Auto) 0.600 Neut % (Auto) 79.6 H Lymph % (Auto) 12.6 L [place] % (Auto) 7.0 Eos % (Auto) 0.0 Baso % (Auto) 0.2 Absolute Neuts (auto) 5.0 Absolute Lymphs (auto) 0.80 L Total Counted Not Reportable Differential Comment Hypochromasia Anisocytosis ESR 16 PT 13.6 INR 1.0 Sodium 142 Potassium 3.8 Chloride 108 H Carbon Dioxide 28.0 Anion Gap 6 BUN 5 L Creatinine 0.47 L Estim Creat Clear Calc 114.87 Est GFR (MDRD) Af Amer 200 Est GFR (MDRD) Non-Af 165 BUN/Creatinine Ratio 10.7 Glucose 98 Calcium 7.7 L Total Bilirubin 0.20 AST 18 ALT 17 Alkaline Phosphatase 93 C-React Prot Ext Range < 2.90 Total Protein 6.0 L Albumin 2.6 L Globulin 3.4 Albumin/Globulin Ratio 0.8 L 02/28/18 02/28/18 04:50 04:50 WBC 5.8 RBC 3.26 L Hgb 9.5 L Hct 30.0 L MCV 92.0 MCH 29.1 MCHC 31.7 L RDW 13.6 RDW Differential 44.7 H Plt Count 338 MPV 8.8 Immature Gran % (Auto) 1.200 H Neut % (Auto) 83.5 H Lymph % (Auto) 9.7 L [place] % (Auto) 5.4 Eos % (Auto) 0.0 Baso % (Auto) 0.2 Absolute Neuts (auto) 4.8 Absolute Lymphs (auto) 0.56 L Total Counted Not Reportable Differential Comment SCANNED Hypochromasia 1+ Anisocytosis 2+ ESR PT INR Sodium 143 Potassium 3.6 Chloride 108 H Carbon Dioxide 28.0 Anion Gap 7 BUN 4 L Creatinine 0.44 L Estim Creat Clear Calc 122.71 Est GFR (MDRD) Af Amer 213 Est GFR (MDRD) Non-Af 176 BUN/Creatinine Ratio 9.1 L Glucose 111 H Calcium 7.4 L Total Bilirubin 0.20 AST 18 ALT 17 Alkaline Phosphatase 88 C-React Prot Ext Range Total Protein 5.7 L Albumin 2.5 L Globulin 3.2 Albumin/Globulin Ratio 0.8 L Assessment/Plan All Active Problems (Last Reviewed 02/26/18 @ 09:04 by Alexander Koehler MD) Exacerbation of ulcerative colitis (Acute) I have interviewed and reviewed patient information. I concur with the history and physical exam provided by Angeli DELANEY. I believe that the most startling finding is a patient claims that her normal ideal body weight should be 130 pounds and she is currently at 92 pounds. There is a reported history that ever since her ileostomy reversal that she has had escalated bouts of acute ulcerative colitis with progressive failure of medication. The finding that is most marked is her significant malnutrition. I believe that this is putting her at high risk for poor outcome and . In talking with her she demonstrates a very high level of denial regarding her current situation. She still wants to stay at [facility] despite the lack of colorectal surgery and gastroenterology support. She still wants to attempt treatment with medications despite the fact that she is now in a condition of severe crisis secondary to malnutrition and failure of medical treatment I believe that she requires aggressive nutritional supplementation even if that means intravenous hyperalimentation. I believe that she should be transferred to a center of excellence dealing with her disease process. I believe that she would then be a candidate for diverting ileostomy in order to maximize her nutrition. She would then be a candidate for definitive surgery regarding her ulcerative colitis whether that the a total proctocolectomy with ileoanal pouch or ileorectal connection. She states that she has not seen her colorectal surgeon now for over a year. I believe that his involvement now is critical. At the end of my discussion she still expressed denial and wanting to proceed with surgical intervention. I do not have surgical intervention planned for her locally. I would recommend that you address her medical denial and malnutrition. I would recommend tertiary referral. Solomon Fontenot M.D., F.A.C.S. <Angeli Abad - Last Filed: 02/28/18 15:39> Problem List (1) Exacerbation of ulcerative colitis Status: Acute Reason for Consult Date of Consultation: 02/28/18 Reason for Consultation: Abdominal pain. Abnormal CT scan. Current ulcerative colitis flare up. History of Present Illness: The patient is a 32 year old F who presents with abdominal pain, nausea, diarrhea, and vomiting x 2 weeks. Patient has a history of ulcerative colitis. She was diagnosed approximately 13 years ago at the age of [age] years old. Patient notes she was in high school playing basketball when she had rectal bleeding and lower abdominal pain. She was sent to [facility] pediatric GI Dr. Letty Brar who diagnosed the patient with ulcerative colitis, however patient notes there was a suspicion for Crohn's due to the lesions had skipped within the colon. Patient was tried on multiple medications without relief of her symptoms. Patient notes she was on Remicade for 5 years which decreased her flare ups. In the mean time the patient was no longer able to see Dr. Brar due to she was the age of 22. She then went to Dr. Friedman from [facility] . At that time she was then switched to [employer]. Patient was then and wanted to start a family, so it was recommended the patient stop the [employer]. During her , patient denied flare ups or symptoms form her ulcerative colitis. She noted for approximately 3 months before her symptoms returned. She went back on [employer] which did not work as well. She was then hospitalized at [facility] in 2010 for 3 months for a flare up. At that time, Dr. Ariza created an ileostomy to assist with the healing. She noted an ileostomy reversal approximately 2 years ago. She stated Dr. Ariza did discuss surgical intervention in regards to a total colectomy however the patient was not interested at that time. Patient continued to be evaluated by Dr. Ariza for 1 1/2 years following the reversal due to she did not like the GI doctors from [facility]. She more recently switched to Dr. Amador. Patient had a flare up approximately 2 months ago which she was placed on prednisone [address] Amador recently performed a colonoscopy on 9/18/18 which demonstrated Approximately 20 cm of the left colon involved patchy inflammation. The remaining colon appeared normal. Pathology returned as chronic active colitis at 20 cm consistent with ulcerative colitis. It was recommended the patient continue on prednisone and to consider a biological therapy. Patient noted she was tapered down to 5 mg prednisone daily when her symptoms flared back up approximately 2 weeks ago. She had difficulty with her insurance approving Entivoyl which delayed treatment. Patient had her first infusion of Entivoyl on Monday. Patient's symptoms were worse on Monday and she notified the nurse who spoke with Dr. Amador who placed her back on 30 mg prednisone. The patient's symptoms continued which brought her to the ED on Monday. Patient notes multiple episodes of bright red blood mixed with mucous diarrhea. She notes cramping associated with diarrhea in the lower pelvis/over towards the left lower quadrant. She notes nausea, vomiting associated with her abdominal pain symptoms. Patient notes she usually has nausea, vomiting when she has flare ups. She notes she has stopped eating gluten products secondary to the patient noting association with flare up symptoms despite being told diet is not associated. Patient denies family history of inflammatory bowel disease. She notes her family is of Roman Catholic decent. She notes once she had her ileostomy reversal she has had loss of appetite ever since. She knows she has malnutrition. She is very tearful at times and is frustrated that she does not seem to be improving. She notes she has to wear depends most days secondary to stool incontinence. She states she is unable to go out in public secondary to the fear of stool incontinence. Other than medication for ulcerative colitis, she does not take any routine medication. Patient notes history of cholecystectomy. Ct scan of the abdomen/pelvis was obtained on 02/27 which demonstrated thick-walled of the distal colon with inflammatory/infectious process, mild free fluid in the pelvis, 1.7 cm right ovarian dermoid cyst. Past Medical History Medical History: Medical History (Last Reviewed 02/26/18 @ 09:04 by Alexander Koehler MD) Endometriosis N80.9 Ulcerative colitis K51.90 Allergies metoclopramide [From Reglan] Allergy (Verified 02/23/18 10:39) Other NEUROMUSCULAR PROBLEMS amoxicillin [From Augmentin] Adverse Reaction (Verified 02/23/18 10:39) Nausea/Vom/Diarrhea clavulanic acid [From Augmentin] Adverse Reaction (Verified 02/23/18 10:39) Nausea/Vom/Diarrhea Surgical History: cholecystectomy, - - Ileostomy with subsequent reversal Psychiatric History: Depression [employer] History: endometriosis Lives: With Family Smoking Status: Never smoker Alcohol: Occasional - *Family History Maternal Family History: Family History (Last Updated 02/25/18 @ 22:14 by Alexander Koehler MD) Father Hypertension Paternal Family History: Family History (Last Updated 02/25/18 @ 22:14 by Alexander Koehler MD) Father Hypertension Review of Systems Constitutional: Reports: Anorexia, Malaise, Weakness, Weight Change HEENT: Denies: Head Aches, Sinus Congestion, Sinus Drainage Cardiovascular: Denies: Chest Pain, Palpitations Respiratory: Denies: Cough, Shortness of breath at rest, Sputum production Gastrointestinal: Reports: Abdominal Pain, Diarrhea, Hematochezia, Nausea, Vomiting Genitourinary: Reports: Incontinence - stool incontinence. Denies: Dysuria Musculoskeletal: Reports: Leg Pain - bilateral. Denies: Joint Pain, Joint Tenderness Skin: Denies: Rash, Wounds Neurological: Denies: Numbness, Tingling, Focal weakness Psychiatric: Reports: Depression. Denies: Anxiety, Homicidal Ideations, Suicidal Ideations Hematologic/ Lymphatic: Reports: Anemia - Physical Exam General: Alert, Oriented x3, Cooperative, - - Severely malnourished HEENT: Atraumatic, PERRLA, EOMI, Normocephalic Neck: Supple, No JVD, Negative Carotid Bruits Lungs: Clear to auscultation, Normal air movement Cardiovascular: Regular rate, No murmurs Abdomen: Bowel Sounds Present, Soft, Guarding, Tender - LLQ/ pelvic region Extremities: Capillary Refill Less than 3 Seconds, Edema - bilateral lower extremity pitting edema; 1+ Skin: No rashes, No breakdown Musculoskeletal: Cachexia Neurological: Neuro grossly intact Psych/Mental Status: Depressed, - - Tearful and feeling of bothering/disappointing people Vital Signs Temp Pulse Resp BP Pulse Ox 98.5 F 97 16 137/107 H 98 02/28/18 08:33 02/28/18 08:33 02/28/18 08:33 02/28/18 08:33 02/28/18 08:33 Oxygen Delivery Method Room Air Weight: 92 lb 8 oz Body Mass Index (BMI) 14.5 Intake and Output for Last 24 Hours 02/26/18 02/27/18 02/28/18 23:59 23:59 23:59 Intake Total 2485 / 2485 3337 / 3337 2270 / 2270 Output Total 150 / 150 550 / 550 Balance 2335 / 2335 3337 / 3337 1720 / 1720 Laboratory Tests Past 24 Hrs 02/27/18 02/27/18 02/27/18 13:00 13:00 13:00 WBC 6.3 RBC 3.39 L Hgb 9.8 L Hct 30.9 L MCV 91.2 MCH 28.9 MCHC 31.7 L RDW 13.9 RDW Differential 45.3 H Plt Count 350 MPV 8.9 Immature Gran % (Auto) 0.600 Neut % (Auto) 79.6 H Lymph % (Auto) 12.6 L [place] % (Auto) 7.0 Eos % (Auto) 0.0 Baso % (Auto) 0.2 Absolute Neuts (auto) 5.0 Absolute Lymphs (auto) 0.80 L Total Counted Not Reportable Differential Comment Hypochromasia Anisocytosis ESR 16 PT 13.6 INR 1.0 Sodium 142 Potassium 3.8 Chloride 108 H Carbon Dioxide 28.0 Anion Gap 6 BUN 5 L Creatinine 0.47 L Estim Creat Clear Calc 114.87 Est GFR (MDRD) Af Amer 200 Est GFR (MDRD) Non-Af 165 BUN/Creatinine Ratio 10.7 Glucose 98 Calcium 7.7 L Total Bilirubin 0.20 AST 18 ALT 17 Alkaline Phosphatase 93 C-React Prot Ext Range < 2.90 Total Protein 6.0 L Albumin 2.6 L Globulin 3.4 Albumin/Globulin Ratio 0.8 L 02/28/18 02/28/18 04:50 04:50 WBC 5.8 RBC 3.26 L Hgb 9.5 L Hct 30.0 L MCV 92.0 MCH 29.1 MCHC 31.7 L RDW 13.6 RDW Differential 44.7 H Plt Count 338 MPV 8.8 Immature Gran % (Auto) 1.200 H Neut % (Auto) 83.5 H Lymph % (Auto) 9.7 L [place] % (Auto) 5.4 Eos % (Auto) 0.0 Baso % (Auto) 0.2 Absolute Neuts (auto) 4.8 Absolute Lymphs (auto) 0.56 L Total Counted Not Reportable Differential Comment SCANNED Hypochromasia 1+ Anisocytosis 2+ ESR PT INR Sodium 143 Potassium 3.6 Chloride 108 H Carbon Dioxide 28.0 Anion Gap 7 BUN 4 L Creatinine 0.44 L Estim Creat Clear Calc 122.71 Est GFR (MDRD) Af Amer 213 Est GFR (MDRD) Non-Af 176 BUN/Creatinine Ratio 9.1 L Glucose 111 H Calcium 7.4 L Total Bilirubin 0.20 AST 18 ALT 17 Alkaline Phosphatase 88 C-React Prot Ext Range Total Protein 5.7 L Albumin 2.5 L Globulin 3.2 Albumin/Globulin Ratio 0.8 L Assessment/Plan I have been consulted in conjunction with Dr. Fontenot. Impression: Active colitis. History of Ulcerative colitis. Severe malnutrition. Failed multiple outpatient medications. Plan: Discussed patient with Dr. Fontenot. Patient would like to stay and give the medication a chance to work prior to transfer. It is recommended if patient stays she start on TPN to assist with the malnutrition. It is being recommended that the patient be transferred to a tertiary facility (i.e. [facility]) where gastroenterology and colorectal surgery is available. Patient has already been established with colorectal at [facility]. It has been discussed with the patient that she has failed multiple outpatient medications for ulcerative colitis and may need further surgical intervention to assist with her current disease. Not to mention the patient has become malnourished secondary to her ulcerative colitis symptoms. It is in the patient's best interest to have definitive surgery. At this time, we are not planning surgical intervention. Thank you for allowing us to participate in this patient's care. Please reconsult if needed. My recommendations will be available via electronic medical records. Code Visit Office Visits / Consults: [id number] IP Consult L3
[2018-02-28] MEDS: Menthol/Lanolin/Calamine/Znox 113 GM Tube 1 APPLIC TOPICAL ×4 (09:51→21:42)
--- NOTE | 2018-02-28 10:19 | CON.PCM_ITS ---
<Solomon Fontenot - Last Filed: 02/28/18 11:10> Reason for Consult History of Present Illness: The patient is a 32 year old F [] Past Medical History Past Medical History (Chronic Problems): Chronic Problems (Last Reviewed 02/26/18 @ 09:04 by Alexander Koehler MD) Endometritis (Chronic) Medical History: Medical History (Last Reviewed 02/26/18 @ 09:04 by Alexander Koehler MD) Endometriosis N80.9 Ulcerative colitis K51.90 Allergies metoclopramide [From Reglan] Allergy (Verified 02/23/18 10:39) Other NEUROMUSCULAR PROBLEMS amoxicillin [From Augmentin] Adverse Reaction (Verified 02/23/18 10:39) Nausea/Vom/Diarrhea clavulanic acid [From Augmentin] Adverse Reaction (Verified 02/23/18 10:39) Nausea/Vom/Diarrhea Home Medications: Ambulatory Orders Medication Instructions Recorded Acetaminophen [Tylenol Extra 500 - 1,000 mg PO Q6H PRN PRN 02/25/18 Strength] Diphenoxylate/Atrop [Lomotil] 2 tab PO PRN PRN 02/25/18 Eszopiclone 1 mg PO QHS 02/25/18 Ondansetron [Zofran Odt] 4 mg PO 4X/DAY PRN PRN 02/25/18 Prednisone 30 mg PO DAILY 02/25/18 - *Family History Maternal Family History: Family History (Last Updated 02/25/18 @ 22:14 by Alexander Koehler MD) Father Hypertension Paternal Family History: Family History (Last Updated 02/25/18 @ 22:14 by Alexander Koehler MD) Father Hypertension Patient Problems: Active and Suspected Problems (Last Reviewed 02/26/18 @ 09:04 by Alexander Koehler MD) Exacerbation of ulcerative colitis (Acute) - Physical Exam Vital Signs Temp Pulse Resp BP Pulse Ox 98.5 F 97 16 137/107 H 98 02/28/18 08:33 02/28/18 08:33 02/28/18 08:33 02/28/18 08:33 02/28/18 08:33 Oxygen Delivery Method Room Air Weight: 92 lb 7.99 oz Body Mass Index (BMI) 14.5 Intake and Output for Last 24 Hours 02/26/18 02/27/18 02/28/18 23:59 23:59 23:59 Intake Total 2485 / 2485 3337 / 3337 2270 / 2270 Output Total 150 / 150 550 / 550 Balance 2335 / 2335 3337 / 3337 1720 / 1720 Laboratory Tests Past 24 Hrs 02/27/18 02/27/18 02/27/18 13:00 13:00 13:00 WBC 6.3 RBC 3.39 L Hgb 9.8 L Hct 30.9 L MCV 91.2 MCH 28.9 MCHC 31.7 L RDW 13.9 RDW Differential 45.3 H Plt Count 350 MPV 8.9 Immature Gran % (Auto) 0.600 Neut % (Auto) 79.6 H Lymph % (Auto) 12.6 L Dubois % (Auto) 7.0 Eos % (Auto) 0.0 Baso % (Auto) 0.2 Absolute Neuts (auto) 5.0 Absolute Lymphs (auto) 0.80 L Total Counted Not Reportable Differential Comment Hypochromasia Anisocytosis ESR 16 PT 13.6 INR 1.0 Sodium 142 Potassium 3.8 Chloride 108 H Carbon Dioxide 28.0 Anion Gap 6 BUN 5 L Creatinine 0.47 L Estim Creat Clear Calc 114.87 Est GFR (MDRD) Af Amer 200 Est GFR (MDRD) Non-Af 165 BUN/Creatinine Ratio 10.7 Glucose 98 Calcium 7.7 L Total Bilirubin 0.20 AST 18 ALT 17 Alkaline Phosphatase 93 C-React Prot Ext Range < 2.90 Total Protein 6.0 L Albumin 2.6 L Globulin 3.4 Albumin/Globulin Ratio 0.8 L 02/28/18 02/28/18 04:50 04:50 WBC 5.8 RBC 3.26 L Hgb 9.5 L Hct 30.0 L MCV 92.0 MCH 29.1 MCHC 31.7 L RDW 13.6 RDW Differential 44.7 H Plt Count 338 MPV 8.8 Immature Gran % (Auto) 1.200 H Neut % (Auto) 83.5 H Lymph % (Auto) 9.7 L Dubois % (Auto) 5.4 Eos % (Auto) 0.0 Baso % (Auto) 0.2 Absolute Neuts (auto) 4.8 Absolute Lymphs (auto) 0.56 L Total Counted Not Reportable Differential Comment SCANNED Hypochromasia 1+ Anisocytosis 2+ ESR PT INR Sodium 143 Potassium 3.6 Chloride 108 H Carbon Dioxide 28.0 Anion Gap 7 BUN 4 L Creatinine 0.44 L Estim Creat Clear Calc 122.71 Est GFR (MDRD) Af Amer 213 Est GFR (MDRD) Non-Af 176 BUN/Creatinine Ratio 9.1 L Glucose 111 H Calcium 7.4 L Total Bilirubin 0.20 AST 18 ALT 17 Alkaline Phosphatase 88 C-React Prot Ext Range Total Protein 5.7 L Albumin 2.5 L Globulin 3.2 Albumin/Globulin Ratio 0.8 L Assessment/Plan All Active Problems (Last Reviewed 02/26/18 @ 09:04 by Alexander Koehler MD) Exacerbation of ulcerative colitis (Acute) I have interviewed and reviewed patient information. I concur with the history and physical exam provided by Angeli DELANEY. I believe that the most startling finding is a patient claims that her normal ideal body weight should be 130 pounds and she is currently at 92 pounds. There is a reported history that ever since her ileostomy reversal that she has had escalated bouts of acute ulcerative colitis with progressive failure of medication. The finding that is most marked is her significant malnutrition. I believe that this is putting her at high risk for poor outcome and . In talking with her she demonstrates a very high level of denial regarding her current situation. She still wants to stay at [facility] despite the lack of colorectal surgery and gastroenterology support. She still wants to attempt treatment with medications despite the fact that she is now in a condition of severe crisis secondary to malnutrition and failure of medical treatment I believe that she requires aggressive nutritional supplementation even if that means intravenous hyperalimentation. I believe that she should be transferred to a center of excellence dealing with her disease process. I believe that she would then be a candidate for diverting ileostomy in order to maximize her nutrition. She would then be a candidate for definitive surgery regarding her ulcerative colitis whether that the a total proctocolectomy with ileoanal pouch or ileorectal connection. She states that she has not seen her colorectal surgeon now for over a year. I believe that his involvement now is critical. At the end of my discussion she still expressed denial and wanting to proceed with surgical intervention. I do not have surgical intervention planned for her locally. I would recommend that you address her medical denial and malnutrition. I would recommend tertiary referral. Solomon Fontenot M.D., F.A.C.S. <Angeli Abad - Last Filed: 02/28/18 15:39> Problem List (1) Exacerbation of ulcerative colitis Status: Acute Reason for Consult Date of Consultation: 02/28/18 Reason for Consultation: Abdominal pain. Abnormal CT scan. Current ulcerative colitis flare up. History of Present Illness: The patient is a 32 year old F who presents with abdominal pain, nausea, diarrhea, and vomiting x 2 weeks. Patient has a history of ulcerative colitis. She was diagnosed approximately 13 years ago at the age of [age] years old. Patient notes she was in high school playing basketball when she had rectal bleeding and lower abdominal pain. She was sent to [facility] pediatric GI Dr. Letty Brar who diagnosed the patient with ulcerative colitis, however patient notes there was a suspicion for Crohn's due to the lesions had skipped within the colon. Patient was tried on multiple medications without relief of her symptoms. Patient notes she was on Remicade for 5 years which decreased her flare ups. In the mean time the patient was no longer able to see Dr. Brar due to she was the age of 22. She then went to Dr. Friedman from [facility] . At that time she was then switched to [employer]. Patient was then and wanted to start a family, so it was recommended the patient stop the [employer]. During her , patient denied flare ups or symptoms form her ulcerative colitis. She noted for approximately 3 months before her symptoms returned. She went back on [employer] which did not work as well. She was then hospitalized at [facility] in 2010 for 3 months for a flare up. At that time, Dr. Ariza created an ileostomy to assist with the healing. She noted an ileostomy reversal approximately 2 years ago. She stated Dr. Ariza did discuss surgical intervention in regards to a total colectomy however the patient was not interested at that time. Patient continued to be evaluated by Dr. Ariza for 1 1/2 years following the reversal due to she did not like the GI doctors from [facility]. She more recently switched to Dr. Amador. Patient had a flare up approximately 2 months ago which she was placed on prednisone [address] Amador recently performed a colonoscopy on 9/18/18 which demonstrated Approximately 20 cm of the left colon involved patchy inflammation. The remaining colon appeared normal. Pathology returned as chronic active colitis at 20 cm consistent with ulcerative colitis. It was recommended the patient continue on prednisone and to consider a biological therapy. Patient noted she was tapered down to 5 mg prednisone daily when her symptoms flared back up approximately 2 weeks ago. She had difficulty with her insurance approving Entivoyl which delayed treatment. Patient had her first infusion of Entivoyl on Monday. Patient's symptoms were worse on Monday and she notified the nurse who spoke with Dr. Amador who placed her back on 30 mg prednisone. The patient's symptoms continued which brought her to the ED on Monday. Patient notes multiple episodes of bright red blood mixed with mucous diarrhea. She notes cramping associated with diarrhea in the lower pelvis/over towards the left lower quadrant. She notes nausea, vomiting associated with her abdominal pain symptoms. Patient notes she usually has nausea, vomiting when she has flare ups. She notes she has stopped eating gluten products secondary to the patient noting association with flare up symptoms despite being told diet is not associated. Patient denies family history of inflammatory bowel disease. She notes her family is of Yarsanism decent. She notes once she had her ileostomy reversal she has had loss of appetite ever since. She knows she has malnutrition. She is very tearful at times and is frustrated that she does not seem to be improving. She notes she has to wear depends most days secondary to stool incontinence. She states she is unable to go out in public secondary to the fear of stool incontinence. Other than medication for ulcerative colitis, she does not take any routine medication. Patient notes history of cholecystectomy. Ct scan of the abdomen/pelvis was obtained on 02/27 which demonstrated thick- walled of the distal colon with inflammatory/infectious process, mild free fluid in the pelvis, 1.7 cm right ovarian dermoid cyst. Past Medical History Medical History: Medical History (Last Reviewed 02/26/18 @ 09:04 by Alexander Koehler MD) Endometriosis N80.9 Ulcerative colitis K51.90 Allergies metoclopramide [From Reglan] Allergy (Verified 02/23/18 10:39) Other NEUROMUSCULAR PROBLEMS amoxicillin [From Augmentin] Adverse Reaction (Verified 02/23/18 10:39) Nausea/Vom/Diarrhea clavulanic acid [From Augmentin] Adverse Reaction (Verified 02/23/18 10:39) Nausea/Vom/Diarrhea Surgical History: cholecystectomy, - - Ileostomy with subsequent reversal Psychiatric History: Depression [employer] History: endometriosis Lives: With Family Smoking Status: Never smoker Alcohol: Occasional - *Family History Maternal Family History: Family History (Last Updated 02/25/18 @ 22:14 by Alexander Koehler MD) Father Hypertension Paternal Family History: Family History (Last Updated 02/25/18 @ 22:14 by Alexander Koehler MD) Father Hypertension Review of Systems Constitutional: Reports: Anorexia, Malaise, Weakness, Weight Change HEENT: Denies: Head Aches, Sinus Congestion, Sinus Drainage Cardiovascular: Denies: Chest Pain, Palpitations Respiratory: Denies: Cough, Shortness of breath at rest, Sputum production Gastrointestinal: Reports: Abdominal Pain, Diarrhea, Hematochezia, Nausea, Vomiting Genitourinary: Reports: Incontinence - stool incontinence. Denies: Dysuria Musculoskeletal: Reports: Leg Pain - bilateral. Denies: Joint Pain, Joint Tenderness Skin: Denies: Rash, Wounds Neurological: Denies: Numbness, Tingling, Focal weakness Psychiatric: Reports: Depression. Denies: Anxiety, Homicidal Ideations, Suicidal Ideations Hematologic/ Lymphatic: Reports: Anemia - Physical Exam General: Alert, Oriented x3, Cooperative, - - Severely malnourished HEENT: Atraumatic, PERRLA, EOMI, Normocephalic Neck: Supple, No JVD, Negative Carotid Bruits Lungs: Clear to auscultation, Normal air movement Cardiovascular: Regular rate, No murmurs Abdomen: Bowel Sounds Present, Soft, Guarding, Tender - LLQ/ pelvic region Extremities: Capillary Refill Less than 3 Seconds, Edema - bilateral lower extremity pitting edema; 1+ Skin: No rashes, No breakdown Musculoskeletal: Cachexia Neurological: Neuro grossly intact Psych/Mental Status: Depressed, - - Tearful and feeling of both ering/disappointing people Vital Signs Temp Pulse Resp BP Pulse Ox 98.5 F 97 16 137/107 H 98 02/28/18 08:33 02/28/18 08:33 02/28/18 08:33 02/28/18 08:33 02/28/18 08:33 Oxygen Delivery Method Room Air Weight: 92 lb 8 oz Body Mass Index (BMI) 14.5 Intake and Output for Last 24 Hours 02/26/18 02/27/18 02/28/18 23:59 23:59 23:59 Intake Total 2485 / 2485 3337 / 3337 2270 / 2270 Output Total 150 / 150 550 / 550 Balance 2335 / 2335 3337 / 3337 1720 / 1720 Laboratory Tests Past 24 Hrs 02/27/18 02/27/18 02/27/18 13:00 13:00 13:00 WBC 6.3 RBC 3.39 L Hgb 9.8 L Hct 30.9 L MCV 91.2 MCH 28.9 MCHC 31.7 L RDW 13.9 RDW Differential 45.3 H Plt Count 350 MPV 8.9 Immature Gran % (Auto) 0.600 Neut % (Auto) 79.6 H Lymph % (Auto) 12.6 L Dubois % (Auto) 7.0 Eos % (Auto) 0.0 Baso % (Auto) 0.2 Absolute Neuts (auto) 5.0 Absolute Lymphs (auto) 0.80 L Total Counted Not Reportable Differential Comment Hypochromasia Anisocytosis ESR 16 PT 13.6 INR 1.0 Sodium 142 Potassium 3.8 Chloride 108 H Carbon Dioxide 28.0 Anion Gap 6 BUN 5 L Creatinine 0.47 L Estim Creat Clear Calc 114.87 Est GFR (MDRD) Af Amer 200 Est GFR (MDRD) Non-Af 165 BUN/Creatinine Ratio 10.7 Glucose 98 Calcium 7.7 L Total Bilirubin 0.20 AST 18 ALT 17 Alkaline Phosphatase 93 C-React Prot Ext Range < 2.90 Total Protein 6.0 L Albumin 2.6 L Globulin 3.4 Albumin/Globulin Ratio 0.8 L 02/28/18 02/28/18 04:50 04:50 WBC 5.8 RBC 3.26 L Hgb 9.5 L Hct 30.0 L MCV 92.0 MCH 29.1 MCHC 31.7 L RDW 13.6 RDW Differential 44.7 H Plt Count 338 MPV 8.8 Immature Gran % (Auto) 1.200 H Neut % (Auto) 83.5 H Lymph % (Auto) 9.7 L Dubois % (Auto) 5.4 Eos % (Auto) 0.0 Baso % (Auto) 0.2 Absolute Neuts (auto) 4.8 Absolute Lymphs (auto) 0.56 L Total Counted Not Reportable Differential Comment SCANNED Hypochromasia 1+ Anisocytosis 2+ ESR PT INR Sodium 143 Potassium 3.6 Chloride 108 H Carbon Dioxide 28.0 Anion Gap 7 BUN 4 L Creatinine 0.44 L Estim Creat Clear Calc 122.71 Est GFR (MDRD) Af Amer 213 Est GFR (MDRD) Non-Af 176 BUN/Creatinine Ratio 9.1 L Glucose 111 H Calcium 7.4 L Total Bilirubin 0.20 AST 18 ALT 17 Alkaline Phosphatase 88 C-React Prot Ext Range Total Protein 5.7 L Albumin 2.5 L Globulin 3.2 Albumin/Globulin Ratio 0.8 L Assessment/Plan I have been consulted in conjunction with Dr. Fontenot. Impression: Active colitis. History of Ulcerative colitis. Severe malnutrition. Failed multiple outpatient medications. Plan: Discussed patient with Dr. Fontenot. Patient would like to stay and give the medication a chance to work prior to transfer. It is recommended if patient stays she start on TPN to assist with the malnutrition. It is being recommended that the patient be transferred to a tertiary facility (i.e. [facility]) where gastroenterology and colorectal surgery is available. Patient has already been established with colorectal at [facility]. It has been discussed with the patient that she has failed multiple outpatient medications for ulcerative colitis and may need further surgical intervention to assist with her current disease. Not to mention the patient has become malnourished secondary to her ulcerative colitis symptoms. It is in the patient's best interest to have definitive surgery. At this time, we are not planning surgical intervention. Thank you for allowing us to participate in this patient's care. Please reconsult if needed. My recommendations will be available via electronic medical records. Code Visit Office Visits / Consults: [id number] IP Consult L3
[2018-02-28] MEDS: Ciprofloxacin 400 MG/200 ML BAG 200 MG IV ×2 (10:59→23:07)
--- NOTE | 2018-02-28 13:15 | PCM.PN.HOSP ---
Patient Problems: Active and Suspected Problems (Last Reviewed 02/26/18 @ 09:04 by Alexander Koehler MD) Exacerbation of ulcerative colitis (Acute) Subjective: Patient is a 32-year-old female with a history of ulcerative colitis (recently started on Entyvio) who was admitted for an ulcerative colitis flare consistent with abdominal pain, hematochezia, nausea and vomiting. Despite IV steroids and pain medications, patient had continued to have such symptoms during her initial hospitalization. A CT abdomen and pelvis was done yesterday with results as below. Discussed with surgery and also discussed with patient regarding results. Patient requests for continued conservative management, as she reports usually her flareups take several days to improve on steroids, with usual hospital stays of 1 to 1-1/2 weeks. Patient is agreeable to transfer to tertiary center if with no improvement with conservative management. She has established care with [facility] surgery, has previously done her ileostomy with takedown in the past. Patient was told previously by her surgeon that she may require eventual colectomy versus J-pouch in the future but has opted for conservative management with initiation of Entyvio for now. At this time, patient states that her pain is better controlled. She continues to have nausea vomiting and bouts of hematochezia without any significant change overnight. She does report that left lower quadrant tenderness has improved. Denies any fevers. Again, patient had outpatient stool studies done prior to admission including stool O and P, stool cultures and C. difficile that were negative (unable to view such results). CT abdomen and pelvis on 02/27/18: 1. Thick-walled distal colon consistent with infectious or inflammatory colitis. Findings are consistent with clinical history of ulcerative colitis. No perforation or collection. 2. Mild free fluid in the pelvis. 3. A 1.7 cm right ovarian dermoid. Objective: General: Alert, Oriented x3, Cooperative HEENT: Normocephalic Oral: Moist Mucosa Neck: Supple Lungs: Clear to auscultation, Normal air movement Cardiovascular: Regular rate, No murmurs Abdomen: Soft, Hyperactive Bowel Sounds, Tender - Left lower quadrant tenderness but no rebound, no guarding Extremities: No edema, Capillary Refill Less than 3 Seconds Skin: No breakdown, - - With noted splotchy macular areas on her face, bottom and back with minimal pruritus Musculoskeletal: No Tenderness to Palpation of Joints or Extremities Neurological: Cranial nerves II-XII grossly intact Psych/Mental Status: Normal Affect appears to be in a better mood, affect, Appropriate Vitals/I&O's: Vital Signs Temp Pulse Resp BP Pulse Ox 98.5 F 97 16 137/107 H 98 02/28/18 08:33 02/28/18 08:33 02/28/18 08:33 02/28/18 08:33 02/28/18 08:33 Oxygen Delivery Method Room Air Weight: 41.957 kg Body Mass Index (BMI) 14.5 Intake and Output for Last 24 Hours 02/26/18 02/27/18 02/28/18 23:59 23:59 23:59 Intake Total 2485 / 2485 3337 / 3337 2270 / 2270 Output Total 150 / 150 550 / 550 Balance 2335 / 2335 3337 / 3337 1720 / 1720 Laboratory Results 02/27/18 13:00: WBC 6.3, RBC 3.39 L, Hgb 9.8 L, Hct 30.9 L, MCV 91.2, MCH 28.9, MCHC 31.7 L, RDW 13.9, RDW Differential 45.3 H, Plt Count 350, MPV 8.9, Immature Gran % (Auto) 0.600, Neut % (Auto) 79.6 H, Lymph % (Auto) 12.6 L, [place] % (Auto) 7.0, Eos % (Auto) 0.0, Baso % (Auto) 0.2, Absolute Neuts (auto) 5.0, Absolute Lymphs (auto) 0.80 L, Total Counted Not Reportable, ESR 16 02/27/18 13:00: PT 13.6, INR 1.0 02/27/18 13:00: Sodium 142, Potassium 3.8, Chloride 108 H, Carbon Dioxide 28.0, Anion Gap 6, BUN 5 L, Creatinine 0.47 L, Estim Creat Clear Calc 114.87, Est GFR (MDRD) Af Amer 200, Est GFR (MDRD) Non-Af 165, BUN/Creatinine Ratio 10.7, Glucose 98, Calcium 7.7 L, Total Bilirubin 0.20, AST 18, ALT 17, Alkaline Phosphatase 93, C-React Prot Ext Range < 2.90, Total Protein 6.0 L, Albumin 2.6 L, Globulin 3.4, Albumin/Globulin Ratio 0.8 L 02/28/18 04:50: WBC 5.8, RBC 3.26 L, Hgb 9.5 L, Hct 30.0 L, MCV 92.0, MCH 29.1, MCHC 31.7 L, RDW 13.6, RDW Differential 44.7 H, Plt Count 338, MPV 8.8, Immature Gran % (Auto) 1.200 H, Neut % (Auto) 83.5 H, Lymph % (Auto) 9.7 L, [place] % (Auto) 5.4, Eos % (Auto) 0.0, Baso % (Auto) 0.2, Absolute Neuts (auto) 4.8, Absolute Lymphs (auto) 0.56 L, Total Counted Not Reportable, Differential Comment SCANNED, Hypochromasia 1+, Anisocytosis 2+ 02/28/18 04:50: Sodium 143, Potassium 3.6, Chloride 108 H, Carbon Dioxide 28.0, Anion Gap 7, BUN 4 L, Creatinine 0.44 L, Estim Creat Clear Calc 122.71, Est GFR (MDRD) Af Amer 213, Est GFR (MDRD) Non-Af 176, BUN/Creatinine Ratio 9.1 L, Glucose 111 H, Calcium 7.4 L, Total Bilirubin 0.20, AST 18, ALT 17, Alkaline Phosphatase 88, Total Protein 5.7 L, Albumin 2.5 L, Globulin 3.2, Albumin/Globulin Ratio 0.8 L Current Medications Acetaminophen (Tylenol) 650 mg PO Q6H PRN PRN PRN Reason: Mild Pain (1-3)/Temp > 100.7 F Calamine/Phenol (Calmoseptine Ointment) 1 applic TOPICAL 4X/DAY [facility]; Protocol Last Admin: 02/28/18 09:51 Dose: 1 applicatio Diphenhydramine HCl (Benadryl) 25 mg IV Q6H PRN PRN PRN Reason: ITCHING Last Admin: 02/28/18 08:35 Dose: 25 mg Hydromorphone HCl (Dilaudid Inj) 0.5 - 1 mg IV Q3H PRN PRN PRN Reason: SEVERE PAIN (6-10/10) Last Admin: 02/28/18 06:56 Dose: 0.5 mg Hydromorphone HCl (Dilaudid Inj) 0.5 - 1 mg IV Q3H PRN PRN PRN Reason: SEVERE PAIN (6-10) Last Admin: 02/28/18 10:19 Dose: 1 mg Sodium Chloride () 1,000 mls @ 175 mls/hr IV .Q5H43M [facility] Last Admin: 02/28/18 05:56 Dose: 175 mls/hr Ciprofloxacin (Cipro) 400 mg in 200 mls @ 200 mls/hr IV Q12 [facility] Last Admin: 02/28/18 10:59 Dose: 200 mls/hr Metronidazole (Flagyl) 500 mg in 100 mls @ 100 mls/hr IV Q8 [facility] Last Admin: 02/28/18 06:56 Dose: 100 mls/hr Pantoprazole Sodium 40 mg/ (Sodium Chloride) 110 mls @ 330 mls/hr IV Q24 [facility] Last Admin: 02/28/18 10:19 Dose: 330 mls/hr Mesalamine (Delzicol) 400 mg PO 4X/DAY [facility] Last Admin: 02/28/18 09:48 Dose: Not Given Methylprednisolone (Solu-Medrol) 60 mg IV Q8 [facility] Last Admin: 02/28/18 06:55 Dose: 60 mg Nutritional Formula (Lactose Free) (Ensure Enlive) 120 ml PO 4X/DAY [facility] Last Admin: 02/28/18 09:45 Dose: Not Given Ondansetron HCl (Zofran) 4 mg IV Q6H PRN PRN PRN Reason: NAUSEA/VOMITING Last Admin: 02/28/18 06:56 Dose: 4 mg Ondansetron HCl (Zofran Odt) 8 mg PO Q6H PRN PRN PRN Reason: NAUSEA Oxycodone HCl (Oxyir) 5 - 10 mg PO Q4H PRN PRN PRN Reason: MOD-SEVERE PAIN (4-10) Last Admin: 02/27/18 08:54 Dose: 5 mg Promethazine HCl (Phenergan) 25 mg IV Q6H PRN PRN PRN Reason: NAUSEA/VOMITING Last Admin: 02/28/18 09:48 Dose: 25 mg Sodium Chloride () 5 - 30 ml IV UD PRN PRN Reason: SALINE FLUSH Last Admin: 02/28/18 06:56 Dose: 10 ml Medical Necessity - Tobacco Use Smoking Status: Never smoker Assessment/Plan All Active Problems (Last Reviewed 02/26/18 @ 09:04 by Alexander Koehler MD) Exacerbation of ulcerative colitis (Acute) Patient is a 32-year-old female with a history of ulcerative colitis, recently started on Entyvio, who was admitted for hematochezia, nausea and vomiting associated with UC flare. 1. Ulcerative colitis flare with hematochezia, nausea vomiting Continue with current IV steroids, pain medications and antiemetics. Flagyl and ciprofloxacin was added yesterday, continue current IV antibiotics. Discussed with both patient as well as surgery regarding transfer. Patient requests for continued conservative management at this time and if with no improvement in next few days, then she is agreeable for transfer to a tertiary center, i.e., [facility], for continued care. Continue clear liquid diet and advance only as tolerated for now. Appreciate general surgery's input. 2. Normocytic anemia, with acute blood loss anemia Trending downwards and secondary to hematochezia associated with above. Continue to monitor H&H and transfuse only as needed. Was given 1 dose of IV iron. 3. Malnutrition, moderate, BMI 14 Patient has had difficulty with tolerating a full liquid diet given intractable nausea and vomiting, however, this appears to be improving with continued use of home dose of Phenergan. May advance diet and add supplemental protein shakes once ulcerative colitis flare appears to be resolving. 4. Hypoalbuminemia Secondary to decreased oral intake and inadequate nutrition. To prevent any swelling associated with IV fluids (third spacing), will give her 1 dose of IV albumin. Advised to elevate patient's legs while in bed. Will decrease IV fluids and encourage protein supplementation intake. 5. GI/DVT prophylaxis Add Protonix, SCDs for DVT prophylaxis. No anticoagulation given hematochezia.
--- NOTE | 2018-02-28 13:24 | PN_ITS ---
Patient Problems: Active and Suspected Problems (Last Reviewed 02/26/18 @ 09:04 by Alexander Koehler MD) Exacerbation of ulcerative colitis (Acute) Subjective: Patient is a 32-year-old female with a history of ulcerative colitis (recently started on Entyvio) who was admitted for an ulcerative colitis flare consistent with abdominal pain, hematochezia, nausea and vomiting. Despite IV steroids and pain medications, patient had continued to have such symptoms during her initial hospitalization. A CT abdomen and pelvis was done yesterday with results as below. Discussed with surgery and also discussed with patient regarding results. Patient requests for continued conservative management, as she reports usually her flareups take several days to improve on steroids, with usual hospital stays of 1 to 1-1/2 weeks. Patient is agreeable to transfer to tertiary center if with no improvement with conservative management. She has established care with [facility] surgery, has previously done her ileostomy with takedown in the past. Patient was told previously by her surgeon that she may require eventual colectomy versus J-pouch in the future but has opted for conservative management with initiation of Entyvio for now. At this time, patient states that her pain is better controlled. She continues to have nausea vomiting and bouts of hematochezia without any significant change overnight. She does report that left lower quadrant tenderness has improved. Denies any fevers. Again, patient had outpatient stool studies done prior to admission including stool O and P, stool cultures and C. difficile that were negative (unable to view such results). CT abdomen and pelvis on 02/27/18: 1. Thick-walled distal colon consistent with infectious or inflammatory colitis. Findings are consistent with clinical history of ulcerative colitis. No perforation or collection. 2. Mild free fluid in the pelvis. 3. A 1.7 cm right ovarian dermoid. Objective: General: Alert, Oriented x3, Cooperative HEENT: Normocephalic Oral: Moist Mucosa Neck: Supple Lungs: Clear to auscultation, Normal air movement Cardiovascular: Regular rate, No murmurs Abdomen: Soft, Hyperactive Bowel Sounds, Tender - Left lower quadrant tenderness but no rebound, no guarding Extremities: No edema, Capillary Refill Less than 3 Seconds Skin: No breakdown, - - With noted splotchy macular areas on her face, bottom and back with minimal pruritus Musculoskeletal: No Tenderness to Palpation of Joints or Extremities Neurological: Cranial nerves II-XII grossly intact Psych/Mental Status: Normal Affect appears to be in a better mood, affect, Appropriate Vitals/I&O's: Vital Signs Temp Pulse Resp BP Pulse Ox 98.5 F 97 16 137/107 H 98 02/28/18 08:33 02/28/18 08:33 02/28/18 08:33 02/28/18 08:33 02/28/18 08:33 Oxygen Delivery Method Room Air Weight: 41.957 kg Body Mass Index (BMI) 14.5 Intake and Output for Last 24 Hours 02/26/18 02/27/18 02/28/18 23:59 23:59 23:59 Intake Total 2485 / 2485 3337 / 3337 2270 / 2270 Output Total 150 / 150 550 / 550 Balance 2335 / 2335 3337 / 3337 1720 / 1720 Laboratory Results 02/27/18 13:00: WBC 6.3, RBC 3.39 L, Hgb 9.8 L, Hct 30.9 L, MCV 91.2, MCH 28.9, MCHC 31.7 L, RDW 13.9, RDW Differential 45.3 H, Plt Count 350, MPV 8.9, Immature Gran % (Auto) 0.600, Neut % (Auto) 79.6 H, Lymph % (Auto) 12.6 L, [place] % (Auto) 7.0, Eos % (Auto) 0.0, Baso % (Auto) 0.2, Absolute Neuts (auto) 5.0, Absolute Lymphs (auto) 0.80 L, Total Counted Not Reportable, ESR 16 02/27/18 13:00: PT 13.6, INR 1.0 02/27/18 13:00: Sodium 142, Potassium 3.8, Chloride 108 H, Carbon Dioxide 28.0, Anion Gap 6, BUN 5 L, Creatinine 0.47 L, Estim Creat Clear Calc 114.87, Est GFR (MDRD) Af Amer 200, Est GFR (MDRD) Non-Af 165, BUN/Creatinine Ratio 10.7, Glucose 98, Calcium 7.7 L, Total Bilirubin 0.20, AST 18, ALT 17, Alkaline Phosphatase 93, C-React Prot Ext Range < 2.90, Total Protein 6.0 L, Albumin 2.6 L, Globulin 3.4, Albumin/Globulin Ratio 0.8 L 02/28/18 04:50: WBC 5.8, RBC 3.26 L, Hgb 9.5 L, Hct 30.0 L, MCV 92.0, MCH 29.1, MCHC 31.7 L, RDW 13.6, RDW Differential 44.7 H, Plt Count 338, MPV 8.8, Immature Gran % (Auto) 1.200 H, Neut % (Auto) 83.5 H, Lymph % (Auto) 9.7 L, [place] % (Auto) 5.4, Eos % (Auto) 0.0, Baso % (Auto) 0.2, Absolute Neuts (auto) 4.8, Absolute Lymphs (auto) 0.56 L, Total Counted Not Reportable, Differential Comment SCANNED, Hypochromasia 1+, Anisocytosis 2+ 02/28/18 04:50: Sodium 143, Potassium 3.6, Chloride 108 H, Carbon Dioxide 28.0, Anion Gap 7, BUN 4 L, Creatinine 0.44 L, Estim Creat Clear Calc 122.71, Est GFR (MDRD) Af Amer 213, Est GFR (MDRD) Non-Af 176, BUN/Creatinine Ratio 9.1 L, Glucose 111 H, Calcium 7.4 L, Total Bilirubin 0.20, AST 18, ALT 17, Alkaline Phosphatase 88, Total Protein 5.7 L, Albumin 2.5 L, Globulin 3.2, Albumin/Globulin Ratio 0.8 L Current Medications Acetaminophen (Tylenol) 650 mg PO Q6H PRN PRN PRN Reason: Mild Pain (1-3)/Temp > 100.7 F Calamine/Phenol (Calmoseptine Ointment) 1 applic TOPICAL 4X/DAY [facility]; Protocol Last Admin: 02/28/18 09:51 Dose: 1 applicatio Diphenhydramine HCl (Benadryl) 25 mg IV Q6H PRN PRN PRN Reason: ITCHING Last Admin: 02/28/18 08:35 Dose: 25 mg Hydromorphone HCl (Dilaudid Inj) 0.5 - 1 mg IV Q3H PRN PRN PRN Reason: SEVERE PAIN (6-10/10) Last Admin: 02/28/18 06:56 Dose: 0.5 mg Hydromorphone HCl (Dilaudid Inj) 0.5 - 1 mg IV Q3H PRN PRN PRN Reason: SEVERE PAIN (6-10) Last Admin: 02/28/18 10:19 Dose: 1 mg Sodium Chloride () 1,000 mls @ 175 mls/hr IV .Q5H43M [facility] Last Admin: 02/28/18 05:56 Dose: 175 mls/hr Ciprofloxacin (Cipro) 400 mg in 200 mls @ 200 mls/hr IV Q12 [facility] Last Admin: 02/28/18 10:59 Dose: 200 mls/hr Metronidazole (Flagyl) 500 mg in 100 mls @ 100 mls/hr IV Q8 [facility] Last Admin: 02/28/18 06:56 Dose: 100 mls/hr Pantoprazole Sodium 40 mg/ (Sodium Chloride) 110 mls @ 330 mls/hr IV Q24 [facility] Last Admin: 02/28/18 10:19 Dose: 330 mls/hr Mesalamine (Delzicol) 400 mg PO 4X/DAY [facility] Last Admin: 02/28/18 09:48 Dose: Not Given Methylprednisolone (Solu-Medrol) 60 mg IV Q8 [facility] Last Admin: 02/28/18 06:55 Dose: 60 mg Nutritional Formula (Lactose Free) (Ensure Enlive) 120 ml PO 4X/DAY [facility] Last Admin: 02/28/18 09:45 Dose: Not Given Ondansetron HCl (Zofran) 4 mg IV Q6H PRN PRN PRN Reason: NAUSEA/VOMITING Last Admin: 02/28/18 06:56 Dose: 4 mg Ondansetron HCl (Zofran Odt) 8 mg PO Q6H PRN PRN PRN Reason: NAUSEA Oxycodone HCl (Oxyir) 5 - 10 mg PO Q4H PRN PRN PRN Reason: MOD-SEVERE PAIN (4-10) Last Admin: 02/27/18 08:54 Dose: 5 mg Promethazine HCl (Phenergan) 25 mg IV Q6H PRN PRN PRN Reason: NAUSEA/VOMITING Last Admin: 02/28/18 09:48 Dose: 25 mg Sodium Chloride () 5 - 30 ml IV UD PRN PRN Reason: SALINE FLUSH Last Admin: 02/28/18 06:56 Dose: 10 ml Medical Necessity - Tobacco Use Smoking Status: Never smoker Assessment/Plan All Active Problems (Last Reviewed 02/26/18 @ 09:04 by Alexander Koehler MD) Exacerbation of ulcerative colitis (Acute) Patient is a 32-year-old female with a history of ulcerative colitis, recently started on Entyvio, who was admitted for hematochezia, nausea and vomiting associated with UC flare. 1. Ulcerative colitis flare with hematochezia, nausea vomiting * Continue with current IV steroids, pain medications and antiemetics. Flagyl and ciprofloxacin was added yesterday, continue current IV antibiotics. Discussed with both patient as well as surgery regarding transfer. Patient requests for continued conservative management at this time and if with no improvement in next few days, then she is agreeable for transfer to a tertiary center, i.e., [facility], for continued care. Continue clear liquid diet and advance only as tolerated for now. Appreciate general surgery's input. 2. Normocytic anemia, with acute blood loss anemia * Trending downwards and secondary to hematochezia associated with above. Continue to monitor H&H and transfuse only as needed. Was given 1 dose of IV iron. 3. Malnutrition, moderate, BMI 14 * Patient has had difficulty with tolerating a full liquid diet given intractable nausea and vomiting, however, this appears to be improving with continued use of home dose of Phenergan. May advance diet and add supplemental protein shakes once ulcerative colitis flare appears to be resolving. 4. Hypoalbuminemia * Secondary to decreased oral intake and inadequate nutrition. To prevent any swelling associated with IV fluids (third spacing), will give her 1 dose of IV albumin. Advised to elevate patient's legs while in bed. Will decrease IV fluids and encourage protein supplementation intake. 5. GI/DVT prophylaxis * Add Protonix, SCDs for DVT prophylaxis. No anticoagulation given hematochezia.
[2018-02-28] MEDS: 0.9% Normal Saline 1,000 ML 125 ML IV (13:50)
[2018-02-28 14:03] VITALS: BP 126/93; PULSE 85; RESP 16; TEMP 36.9; O2SAT 99
[2018-02-28] MEDS: Albumin Human 25% (100 mL) 25 GM/100 ML BAG IV (16:36)
[2018-02-28 19:55] VITALS: BP 131/91; PULSE 69; RESP 18; TEMP 37.1; O2SAT 98
[2018-02-28] MEDS: MESALAMINE 400 MG CAPSULE.DR PO (21:42)
--- NOTE | 2018-03-01 01:00 | NURSING ---
PT CALLS OUT REQUESTING DILAUDID AND PHENERGAN. REMINDED PT GOYO T SHE HAD BOTH OF THOSE MEDICATIONS 90M AGO AND WILL NOT BE ABLE TO GET THEM FOR ANOTHER 90M. DISCUSSED ALTERNATIVE OPTIONS SUCH MEDITATION, DEEP BREATHING, RELAXING. PT RECEPTIVE. WILL CONTINUE TO MONITOR.
[2018-03-01] MEDS: 0.9% Normal Saline 1,000 ML 125 ML IV ×3 (02:07→12:31)
[2018-03-01] MEDS: HYDROmorphone 1 MG/ML Syringe IV ×4 (02:07→19:42)
[2018-03-01] MEDS: 0.9% NaCl Peripheral Flush Adult/Peds IV ×10 (02:07→22:43)
[2018-03-01 02:09] VITALS: BP 140/94; PULSE 70; RESP 16; TEMP 36.6; O2SAT 97
[2018-03-01] MEDS: proMETHazine 25 MG/ML Syringe IV ×5 (03:41→22:40)
[2018-03-01] MEDS: DiphenhydrAMINE 50 MG/ML Syringe 25 MG IV ×3 (03:41→17:38)
[2018-03-01 05:58] LABS: Absolute Lymphocyte Count 0.77 X10^3/ul (0.83-4.51); Absolute Neutrophil Count 4.2 X10^3/uL (2.0-7.7); Basophil# 0.01 X10^3/uL; Basophil% 0.2 % (0-1); Hematocrit 30.9 % (37-47); Hemoglobin 9.6 g/dl (12.0-15.0); Lymphocyte # 0.77 X10^3/ul (4.0); Lymphocyte % 13.5 % (19-41); Mean Corp Hgb Conc 31.1 g/gl (32-36); Mean Corpuscular Hgb 28.3 pg (27.0-32.0); Mean Corpuscular Volume 91.2 fL (81-99); Mean Platelet Vol. 8.8 fl (6.2-12.0); Monocyte# 0.58 X10^3/uL; Monocyte% 10.2 % (0-10); Neutrophil # 4.19 X10^3/uL (2.7-7.7); Neutrophil % 73.3 % (47-70); POSITIVE COUNT YES; POSITIVE DIFFERENTIAL NO; POSITIVE MORPHOLOGY YES; Platelet Count 344 K/mm3 (150-450); RBC Distribution Width CV 13.4 % (11.6-14.6); RBC Distribution Width SD 43.6 fl (35.1-43.9); Red Blood Count 3.39 M/mm3 (4.2-5.4); White Blood Count 5.7 K/mm3 (4.4-11.0)
[2018-03-01 06:04] LABS: AST(SGOT) 18 U/L (15-37); Alanine Aminotransfer ALT/SGPT 17 U/L (13-56); Albumin, Serum 3.2 g/dL (3.2-5.0); Alkaline Phosphatase 78 U/L (45-117); Anion Gap 5 (5-15); BUN 3 mg/dL (7-18); BUN/Creat Ratio 6.7 RATIO (10-20); Calcium,Total 8.2 mg/dL (8.5-10.1); Chloride 104 mmol/L (98-107); Creatinine, Serum 0.45 mg/dL (0.55-1.02); EST Glomerular Filtration Rate 174 mL/min (>60); Est Glom Filt Rate - Afr Amer 210 mL/min (>60); Estimated Creatinine Clearance 119.98 ml/min; Globulin 3.1 g/dL (2.2-4.2); Glucose 110 mg/dL (74-106); Potassium 3.2 mmol/L (3.5-5.1); Protein, Total 6.3 g/dL (6.4-8.2); Sodium Level 142 mmol/L (136-145)
[2018-03-01] MEDS: MethylPREDNISolone 125 MG/2 ML Vial 60 MG IV ×3 (06:18→22:45)
[2018-03-01 08:00] VITALS: BP 146/95; PULSE 80; RESP 16; TEMP 36.8; O2SAT 98
[2018-03-01 08:04] VITALS: PULSE 90
[2018-03-01] MEDS: HYDROmorphone 0.5 MG/0.5 ML SYRINGE IV ×2 (08:31→22:44)
[2018-03-01] MEDS: MESALAMINE 400 MG CAPSULE.DR PO ×3 (10:21→22:46)
[2018-03-01] MEDS: Menthol/Lanolin/Calamine/Znox 113 GM Tube 1 APPLIC TOPICAL ×4 (10:21→22:45)
[2018-03-01] MEDS: Ciprofloxacin 400 MG/200 ML BAG 200 MG IV ×2 (11:21→22:40)
--- NOTE | 2018-03-01 11:59 | PCM.PN.HOSP ---
Patient Problems: Active and Suspected Problems (Last Reviewed 02/26/18 @ 09:04 by Alexander Koehler MD) Exacerbation of ulcerative colitis (Acute) Subjective: Patient is a 32-year-old female with a history of ulcerative colitis (recently started on Entyvio) who was admitted for an ulcerative colitis flare consistent with abdominal pain, hematochezia, nausea and vomiting. Despite IV steroids and pain medications, patient had continued to have such symptoms during her initial hospitalization. A CT abdomen and pelvis was done yesterday with results as below. Discussed with surgery and also discussed with patient regarding results. Patient requests for continued conservative management, as she reports usually her flareups take several days to improve on steroids, with usual hospital stays of 1 to 1-1/2 weeks. She is currently refusing to consider [place] at this point. This will try to place patient on TPN though she refused last night, is agreeable currently. We will try to set up outpatient TPN and have placed patient on oral medications to improve symptom control. Patient will need TPN as an outpatient spoken to case management, she will need to follow-up with surgery as an outpatient if we do not transfer her to [place]. If patient worsens will need to transfer for surgical opinion. But will give it another day with TPN and replacement of electrolytes. Patient was told previously by her surgeon that she may require eventual colectomy versus J-pouch in the future but has opted for conservative management with initiation of Entyvio for now. Patient is still having pain, and nausea. No other symptomology is fever chills chest pain. Vitals/I&O's: Vital Signs Temp Pulse Resp BP Pulse Ox 98.3 F 90 16 146/95 H 98 03/01/18 08:00 03/01/18 08:04 03/01/18 08:00 03/01/18 08:00 03/01/18 08:00 Oxygen Delivery Method Room Air Weight: 41.957 kg Body Mass Index (BMI) 14.5 Intake and Output for Last 24 Hours 02/27/18 02/28/18 03/01/18 23:59 23:59 23:59 Intake Total 3337 / 3337 4468 / 4468 3416 / 3416 Output Total 1250 / 1250 1700 / 1700 Balance 3337 / 3337 3218 / 3218 1716 / 1716 General: Alert, Oriented x3, Cooperative HEENT: Atraumatic, PERRLA, EOMI Oral: No Gingival or Mucosal Lesions/ Ulcerations, Dry Mucosa Neck: Supple, No JVD, Negative Carotid Bruits, Trachea Midline Lungs: Clear to auscultation, No rhonchi, No wheeze, No rales Cardiovascular: Regular rate, Normal S1, Normal S2 Abdomen: Soft, Non-Distended, Tender Extremities: No clubbing, No cyanosis, No edema Skin: No rashes, No breakdown Musculoskeletal: No Tenderness to Palpation of Joints or Extremities, Muscle Wasting Lymphatic: No Cervical, Supraclavicular, or Inguinal Adenopathy Neurological: Cranial nerves II-XII grossly intact, Neuro grossly intact Psych/Mental Status: Normal Affect, Appropriate Laboratory Results 03/01/18 05:20: WBC 5.7, RBC 3.39 L, Hgb 9.6 L, Hct 30.9 L, MCV 91.2, MCH 28.3, MCHC 31.1 L, RDW 13.4, RDW Differential 43.6, Plt Count 344, MPV 8.8, Immature Gran % (Auto) 2.800 H, Neut % (Auto) 73.3 H, Lymph % (Auto) 13.5 L, Whitman % (Auto) 10.2 H, Eos % (Auto) 0.0, Baso % (Auto) 0.2, Absolute Neuts (auto) 4.2, Absolute Lymphs (auto) 0.77 L, Total Counted Not Reportable, Diff Path Review September03/01/18 05:20: Sodium 142, Potassium 3.2 L, Chloride 104, Carbon Dioxide 33.0 H, Anion Gap 5, BUN 3 L, Creatinine 0.45 L, Estim Creat Clear Calc 119.98, Est GFR (MDRD) Af Amer 210, Est GFR (MDRD) Non-Af 174, BUN/Creatinine Ratio 6.7 L, Glucose 110 H, Calcium 8.2 L, Total Bilirubin 0.20, AST 18, ALT 17, Alkaline Phosphatase 78, Total Protein 6.3 L, Albumin 3.2, Globulin 3.1, Albumin/Globulin Ratio 1.0 Current Medications Acetaminophen (Tylenol) 650 mg PO Q6H PRN PRN PRN Reason: Mild Pain (1-3)/Temp > 100.7 F Calamine/Phenol (Calmoseptine Ointment) 1 applic TOPICAL 4X/DAY [facility]; Protocol Last Admin: 03/01/18 10:21 Dose: 1 applicatio Diphenhydramine HCl (Benadryl) 25 mg IV Q6H PRN PRN PRN Reason: ITCHING Last Admin: 03/01/18 11:21 Dose: 25 mg Hydromorphone HCl (Dilaudid Inj) 0.5 - 1 mg IV Q3H PRN PRN PRN Reason: SEVERE PAIN (6-02/14) Last Admin: 03/01/18 08:31 Dose: 1 mg Hydromorphone HCl (Dilaudid Inj) 0.5 - 1 mg IV Q3H PRN PRN PRN Reason: SEVERE PAIN (6-02/14) Last Admin: 03/01/18 02:07 Dose: 1 mg Ciprofloxacin (Cipro) 400 mg in 200 mls @ 200 mls/hr IV Q12 [facility] Last Admin: 03/01/18 11:21 Dose: 200 mls/hr Metronidazole (Flagyl) 500 mg in 100 mls @ 100 mls/hr IV Q8 [facility] Last Admin: 03/01/18 06:18 Dose: 100 mls/hr Pantoprazole Sodium 40 mg/ (Sodium Chloride) 110 mls @ 330 mls/hr IV Q24 [facility] Last Admin: 03/01/18 10:19 Dose: 330 mls/hr Sodium Chloride () 1,000 mls @ 125 mls/hr IV .Q8H [facility] Last Admin: 03/01/18 11:20 Dose: 125 mls/hr Amino Acids/Electrolytes/Dextrose (Clinimix E 4.25%-10% Solution 2000 Ml) 2,000 mls @ 84 mls/hr IV .[id number] [facility] Stop: 03/01/18 19:48 Last Admin: 02/28/18 23:05 Dose: Not Given Potassium Chloride (Kcl 10meq/100ml) 10 meq in 100 mls @ 100 mls/hr IV BOLUS Q1H [facility] Stop: 03/01/18 15:59 Multivitamins 10 ml/ Chromium/Copper/Manganese/Seleni/Zn 1 ml/ Folic Acid 1 mg/Famotidine 20 mg/ Amino Acids/Electrolytes/Dextrose 2,013.2 mls @ 84 mls/hr IV .[id number] [facility] Stop: 03/02/18 15:47 Mesalamine (Delzicol) 400 mg PO 4X/DAY [facility] Last Admin: 03/01/18 10:21 Dose: 400 mg Methylprednisolone (Solu-Medrol) 60 mg IV Q8 [facility] Last Admin: 03/01/18 06:18 Dose: 60 mg Nutritional Formula (Lactose Free) (Ensure Enlive) 120 ml PO 4X/DAY [facility] Last Admin: 03/01/18 08:16 Dose: Not Given Ondansetron HCl (Zofran) 4 mg IV Q6H PRN PRN PRN Reason: NAUSEA/VOMITING Last Admin: 02/28/18 21:41 Dose: 4 mg Ondansetron HCl (Zofran Odt) 8 mg PO Q6H PRN PRN PRN Reason: NAUSEA Oxycodone HCl (Oxyir) 5 - 10 mg PO Q4H PRN PRN PRN Reason: MOD-SEVERE PAIN (4-1010) Last Admin: 02/27/18 08:54 Dose: 5 mg Promethazine HCl (Phenergan) 25 mg IV Q4H PRN PRN PRN Reason: NAUSEA/VOMITING Last Admin: 03/01/18 10:20 Dose: 25 mg Sodium Chloride () 5 - 30 ml IV UD PRN PRN Reason: SALINE FLUSH Last Admin: 03/01/18 11:22 Dose: 10 ml Medical Necessity - Tobacco Use Smoking Status: Never smoker Assessment/Plan All Active Problems (Last Reviewed 02/26/18 @ 09:04 by Alexander Koehler MD) Exacerbation of ulcerative colitis (Acute) Patient is a 32-year-old female with a history of ulcerative colitis, recently started on Entyvio, who was admitted for hematochezia, nausea and vomiting associated with UC flare. 1. Ulcerative colitis flare with hematochezia, nausea vomiting Continue with current IV steroids, pain medications and antiemetics. Flagyl and ciprofloxacin, continue current IV antibiotics. Discussed with both patient as well as surgery regarding transfer. Patient requests for continued conservative management at this time and if with no improvement in next few days, she might need to be [facility] intervention. However she wishes conservative management usual flares range about 1-1-1/2 weeks, will arrange outpatient TPN, if after that point she is still not improved she will need surgical evaluation. 2. Normocytic anemia, with acute blood loss anemia Stabilized and secondary to hematochezia associated with above. Continue to monitor H&H and transfuse only as needed. Was given 1 dose of IV iron. 3. Malnutrition, moderate, BMI 14 Reinitiated TPN patient is agreeable. May need to give outpatient TPN have discussed with case management. Patient has had difficulty with tolerating a full liquid diet given intractable nausea and vomiting, however, this appears to be improving with continued use of home dose of Phenergan will also give alternating doses of Zofran. May advance diet and add supplemental protein shakes once ulcerative colitis flare when appears to be resolving. 4. Hypoalbuminemia Secondary to decreased oral intake and inadequate nutrition. To prevent any swelling associated with IV fluids (third spacing), was given 1 dose of IV albumin. Advised to elevate patient's legs while in bed. Has slight edema but improved 5. GI/DVT prophylaxis Add Protonix, SCDs for DVT prophylaxis. No anticoagulation given hematochezia. Position patient will be maintained in the hospital for conservative measures does not wish to go see surgery in [place] yet we will try TPN possibly as an outpatient as well with follow-up as an outpatient with surgery as well. CODE STATUS full Chart is dictated with [employer] sewer software. Errors may occur in dictation that may change providers meaning. This note was generated with [employer] dictation software. It may contain incorrect words, spelling, and punctuation that were not noted in checking the note before signing.
--- NOTE | 2018-03-01 12:04 | PN_ITS ---
Patient Problems: Active and Suspected Problems (Last Reviewed 02/26/18 @ 09:04 by Alexander Koehler MD) Exacerbation of ulcerative colitis (Acute) Subjective: Patient is a 32-year-old female with a history of ulcerative colitis (recently started on Entyvio) who was admitted for an ulcerative colitis flare consistent with abdominal pain, hematochezia, nausea and vomiting. Despite IV steroids and pain medications, patient had continued to have such symptoms during her initial hospitalization. A CT abdomen and pelvis was done yesterday with results as below. Discussed with surgery and also discussed with patient regarding results. Patient requests for continued conservative management, as she reports usually her flareups take several days to improve on steroids, with usual hospital stays of 1 to 1-1/2 weeks. She is currently refusing to consider [place]'s at this point. This will try to place patient on TPN though she refused last night, is agreeable currently. We will try to set up outpatient TPN and have placed patient on oral medications to improve symptom control. Patient will need TPN as an outpatient spoken to case management, she will need to follow-up with surgery as an outpatient if we do not transfer her to [place]. If patient worsens will need to transfer for surgical opinion. But will give it another day with TPN and replacement of electrolytes. Patient was told previously by her surgeon that she may require eventual colectomy versus J-pouch in the future but has opted for conservative management with initiation of Entyvio for now. Patient is still having pain, and nausea. No other symptomology is fever chills chest pain. Vitals/I&O's: Vital Signs Temp Pulse Resp BP Pulse Ox 98.3 F 90 16 146/95 H 98 03/01/18 08:00 03/01/18 08:04 03/01/18 08:00 03/01/18 08:00 03/01/18 08:00 Oxygen Delivery Method Room Air Weight: 41.957 kg Body Mass Index (BMI) 14.5 Intake and Output for Last 24 Hours 02/27/18 02/28/18 03/01/18 23:59 23:59 23:59 Intake Total 3337 / 3337 4468 / 4468 3416 / 3416 Output Total 1250 / 1250 1700 / 1700 Balance 3337 / 3337 3218 / 3218 1716 / 1716 General: Alert, Oriented x3, Cooperative HEENT: Atraumatic, PERRLA, EOMI Oral: No Gingival or Mucosal Lesions/ Ulcerations, Dry Mucosa Neck: Supple, No JVD, Negative Carotid Bruits, Trachea Midline Lungs: Clear to auscultation, No rhonchi, No wheeze, No rales Cardiovascular: Regular rate, Normal S1, Normal S2 Abdomen: Soft, Non-Distended, Tender Extremities: No clubbing, No cyanosis, No edema Skin: No rashes, No breakdown Musculoskeletal: No Tenderness to Palpation of Joints or Extremities, Muscle Wasting Lymphatic: No Cervical, Supraclavicular, or Inguinal Adenopathy Neurological: Cranial nerves II-XII grossly intact, Neuro grossly intact Psych/Mental Status: Normal Affect, Appropriate Laboratory Results 03/01/18 05:20: WBC 5.7, RBC 3.39 L, Hgb 9.6 L, Hct 30.9 L, MCV 91.2, MCH 28.3, MCHC 31.1 L, RDW 13.4, RDW Differential 43.6, Plt Count 344, MPV 8.8, Immature Gran % (Auto) 2.800 H, Neut % (Auto) 73.3 H, Lymph % (Auto) 13.5 L, Placer % (Auto) 10.2 H, Eos % (Auto) 0.0, Baso % (Auto) 0.2, Absolute Neuts (auto) 4.2, Absolute Lymphs (auto) 0.77 L, Total Counted Not Reportable, Diff Path Review September03/01/18 05:20: Sodium 142, Potassium 3.2 L, Chloride 104, Carbon Dioxide 33.0 H , Anion Gap 5, BUN 3 L, Creatinine 0.45 L, Estim Creat Clear Calc 119.98, Est GFR (MDRD) Af Amer 210, Est GFR (MDRD) Non-Af 174, BUN/Creatinine Ratio 6.7 L, Glucose 110 H, Calcium 8.2 L, Total Bilirubin 0.20, AST 18, ALT 17, Alkaline Phosphatase 78, Total Protein 6.3 L, Albumin 3.2, Globulin 3.1, Albumin/Globulin Ratio 1.0 Current Medications Acetaminophen (Tylenol) 650 mg PO Q6H PRN PRN PRN Reason: Mild Pain (1-3)/Temp > 100.7 F Calamine/Phenol (Calmoseptine Ointment) 1 applic TOPICAL 4X/DAY [facility]; Protocol Last Admin: 03/01/18 10:21 Dose: 1 applicatio Diphenhydramine HCl (Benadryl) 25 mg IV Q6H PRN PRN PRN Reason: ITCHING Last Admin: 03/01/18 11:21 Dose: 25 mg Hydromorphone HCl (Dilaudid Inj) 0.5 - 1 mg IV Q3H PRN PRN PRN Reason: SEVERE PAIN (6-02/14) Last Admin: 03/01/18 08:31 Dose: 1 mg Hydromorphone HCl (Dilaudid Inj) 0.5 - 1 mg IV Q3H PRN PRN PRN Reason: SEVERE PAIN (6-02/14) Last Admin: 03/01/18 02:07 Dose: 1 mg Ciprofloxacin (Cipro) 400 mg in 200 mls @ 200 mls/hr IV Q12 [facility] Last Admin: 03/01/18 11:21 Dose: 200 mls/hr Metronidazole (Flagyl) 500 mg in 100 mls @ 100 mls/hr IV Q8 [facility] Last Admin: 03/01/18 06:18 Dose: 100 mls/hr Pantoprazole Sodium 40 mg/ (Sodium Chloride) 110 mls @ 330 mls/hr IV Q24 [facility] Last Admin: 03/01/18 10:19 Dose: 330 mls/hr Sodium Chloride () 1,000 mls @ 125 mls/hr IV .Q8H [facility] Last Admin: 03/01/18 11:20 Dose: 125 mls/hr Amino Acids/Electrolytes/Dextrose (Clinimix E 4.25%-10% Solution 2000 Ml) 2,000 mls @ 84 mls/hr IV .[id number] [facility] Stop: 03/01/18 19:48 Last Admin: 02/28/18 23:05 Dose: Not Given Potassium Chloride (Kcl 10meq/100ml) 10 meq in 100 mls @ 100 mls/hr IV BOLUS Q1H [facility] Stop: 03/01/18 15:59 Multivitamins 10 ml/ Chromium/Copper/Manganese/Seleni/Zn 1 ml/ Folic Acid 1 mg/Famotidine 20 mg/ Amino Acids/Electrolytes/Dextrose 2,013.2 mls @ 84 mls/hr IV .[id number] [facility] Stop: 03/02/18 15:47 Mesalamine (Delzicol) 400 mg PO 4X/DAY [facility] Last Admin: 03/01/18 10:21 Dose: 400 mg Methylprednisolone (Solu-Medrol) 60 mg IV Q8 [facility] Last Admin: 03/01/18 06:18 Dose: 60 mg Nutritional Formula (Lactose Free) (Ensure Enlive) 120 ml PO 4X/DAY [facility] Last Admin: 03/01/18 08:16 Dose: Not Given Ondansetron HCl (Zofran) 4 mg IV Q6H PRN PRN PRN Reason: NAUSEA/VOMITING Last Admin: 02/28/18 21:41 Dose: 4 mg Ondansetron HCl (Zofran Odt) 8 mg PO Q6H PRN PRN PRN Reason: NAUSEA Oxycodone HCl (Oxyir) 5 - 10 mg PO Q4H PRN PRN PRN Reason: MOD-SEVERE PAIN (4-1010) Last Admin: 02/27/18 08:54 Dose: 5 mg Promethazine HCl (Phenergan) 25 mg IV Q4H PRN PRN PRN Reason: NAUSEA/VOMITING Last Admin: 03/01/18 10:20 Dose: 25 mg Sodium Chloride () 5 - 30 ml IV UD PRN PRN Reason: SALINE FLUSH Last Admin: 03/01/18 11:22 Dose: 10 ml Medical Necessity - Tobacco Use Smoking Status: Never smoker Assessment/Plan All Active Problems (Last Reviewed 02/26/18 @ 09:04 by Alexander Koehler MD) Exacerbation of ulcerative colitis (Acute) Patient is a 32-year-old female with a history of ulcerative colitis, recently started on Entyvio, who was admitted for hematochezia, nausea and vomiting associated with UC flare. 1. Ulcerative colitis flare with hematochezia, nausea vomiting Continue with current IV steroids, pain medications and antiemetics. Flagyl and ciprofloxacin, continue current IV antibiotics. Discussed with both patient as well as surgery regarding transfer. Patient requests for continued conservative management at this time and if with no improvement in next few days, she might need to be transferred to [facility] for surgical intervention. However she wishes conservative management usual flares range about 1-1-1/2 weeks, will arrange outpatient TPN, if after that point she is still not improved she will need surgical evaluation. 2. Normocytic anemia, with acute blood loss anemia Stabilized and secondary to hematochezia associated with above. Continue to monitor H&H and transfuse only as needed. Was given 1 dose of IV iron. 3. Malnutrition, moderate, BMI 14 Reinitiated TPN patient is agreeable. May need to give outpatient TPN have discussed with case management. Patient has had difficulty with tolerating a full liquid diet given intractable nausea and vomiting, however, this appears to be improving with continued use of home dose of Phenergan will also give alternating doses of Zofran. May advance diet and add supplemental protein shakes once ulcerative colitis flare when appears to be resolving. 4. Hypoalbuminemia Secondary to decreased oral intake and inadequate nutrition. To prevent any swelling associated with IV fluids (third spacing), was given 1 dose of IV albumin. Advised to elevate patient's legs while in bed. Has slight edema but improved 5. GI/DVT prophylaxis Add Protonix, SCDs for DVT prophylaxis. No anticoagulation given hematochezia. Position patient will be maintained in the hospital for conservative measures does not wish to go see surgery in [place] yet we will try TPN possibly as an outpatient as well with follow-up as an outpatient with surgery as well. CODE STATUS full Chart is dictated with [employer] software. Errors may occur in dictation that may change providers meaning. This note was generated with [employer] dictation software. It may contain incorrect words, spelling, and punctuation that were not noted in checking the note before signing.
[2018-03-01 13:30] LABS: Pathologist Review Reviewed
--- NOTE | 2018-03-01 14:03 | CASEMGMT ---
Social Work Note SW attempted to meet with pt for emotional support. SW introduced self and role at [facility]. Pt asked this worker if this worker was referred by the nurse. SW explained that this worker just wanted to check in with pt to see how she was doing and that this worker didn't receive an official referral. Pt states that she thought maybe the nurse wanted her to get a pysh eval. Pt states that she is tired and just wants to sleep. Pt states that she just wants to go home and be with the family. Pt states that she misses her family. SW offered support. Once again pt states that she is just tired and wants to sleep. SW informed pt that if she has any needs or concerns to ask staff and this worker can come back to talk to her. Pt states understanding. Karine Sinclair RETANNED LEATHER ROLLER, SPINE NURSE
[2018-03-01 16:04] VITALS: BP 128/92; PULSE 80; RESP 16; TEMP 36.6; O2SAT 98
[2018-03-01] MEDS: Ondansetron 4 MG/2 ML Vial IV (17:04)
[2018-03-01 17:16] LABS: Bedside Glucose 137 mg/dL (70-110)
[2018-03-01 21:00] VITALS: BP 123/98; PULSE 83; RESP 18; TEMP 36.7; O2SAT 98
[2018-03-02] MEDS: DiphenhydrAMINE 50 MG/ML Syringe 25 MG IV ×3 (00:25→14:22)
[2018-03-02] MEDS: Ondansetron 4 MG/2 ML Vial IV ×3 (00:26→14:22)
[2018-03-02] MEDS: HYDROmorphone 0.5 MG/0.5 ML SYRINGE IV ×4 (01:38→11:28)
[2018-03-02] MEDS: 0.9% NaCl Peripheral Flush Adult/Peds IV ×5 (01:39→16:55)
[2018-03-02 02:21] LABS: Bedside Glucose 148 mg/dL (70-110)
[2018-03-02] MEDS: proMETHazine 25 MG/ML Syringe IV ×4 (02:51→15:59)
[2018-03-02 03:00] VITALS: BP 132/98; PULSE 91; RESP 18; TEMP 36.7; O2SAT 99
[2018-03-02] MEDS: MethylPREDNISolone 125 MG/2 ML Vial 60 MG IV ×2 (04:59→14:36)
[2018-03-02 05:16] LABS: Bedside Glucose 148 mg/dL (70-110)
[2018-03-02 05:51] LABS: Absolute Lymphocyte Count 0.85 X10^3/ul (0.83-4.51); Absolute Neutrophil Count 6.4 X10^3/uL (2.0-7.7); Hematocrit 31.3 % (37-47); Hemoglobin 9.7 g/dl (12.0-15.0); Lymphocyte # 0.85 X10^3/ul (4.0); Lymphocyte % 10.8 % (19-41); Mean Corpuscular Hgb 28.1 pg (27.0-32.0); Mean Corpuscular Volume 90.7 fL (81-99); Mean Platelet Vol. 8.8 fl (6.2-12.0); Monocyte# 0.59 X10^3/uL; Monocyte% 7.5 % (0-10); Neutrophil # 6.36 X10^3/uL (2.7-7.7); Neutrophil % 81.1 % (47-70); Platelet Count 313 K/mm3 (150-450); RBC Distribution Width CV 13.7 % (11.6-14.6); RBC Distribution Width SD 45.2 fl (35.1-43.9); Red Blood Count 3.45 M/mm3 (4.2-5.4); White Blood Count 7.9 K/mm3 (4.4-11.0)
[2018-03-02 06:05] LABS: POSITIVE COUNT NO; POSITIVE DIFFERENTIAL NO; POSITIVE MORPHOLOGY NO
[2018-03-02 06:16] LABS: ALB/GLOB Ratio 1.1 RATIO (0.9-2.4); AST(SGOT) 15 U/L (15-37); Alanine Aminotransfer ALT/SGPT 18 U/L (13-56); Albumin, Serum 3.4 g/dL (3.2-5.0); Alkaline Phosphatase 81 U/L (45-117); Anion Gap 5 (5-15); BUN 10 mg/dL (7-18); BUN/Creat Ratio 18.1 RATIO (10-20); Calcium,Total 8.3 mg/dL (8.5-10.1); Chloride 102 mmol/L (98-107); Creatinine, Serum 0.55 mg/dL (0.55-1.02); EST Glomerular Filtration Rate 135 mL/min (>60); Est Glom Filt Rate - Afr Amer 164 mL/min (>60); Estimated Creatinine Clearance 98.16 ml/min; Globulin 3.2 g/dL (2.2-4.2); Glucose 134 mg/dL (74-106); Phosphorus 2.4 mg/dL (2.5-4.9); Potassium 3.8 mmol/L (3.5-5.1); Protein, Total 6.6 g/dL (6.4-8.2); Sodium Level 140 mmol/L (136-145)
[2018-03-02 09:00] VITALS: BP 140/104; PULSE 88; RESP 18; TEMP 36.5; O2SAT 99
[2018-03-02] MEDS: Ciprofloxacin 400 MG/200 ML BAG 200 MG IV (09:29)
[2018-03-02] MEDS: MESALAMINE 400 MG CAPSULE.DR PO ×3 (09:29→17:00)
[2018-03-02] MEDS: Menthol/Lanolin/Calamine/Znox 113 GM Tube 1 APPLIC TOPICAL ×3 (09:30→17:05)
[2018-03-02 11:45] LABS: Bedside Glucose 148 mg/dL (70-110)
[2018-03-02] MEDS: HYDROmorphone 1 MG/ML Syringe IV (14:23)
--- NOTE | 2018-03-02 15:58 | PCM.DC ---
- Discharge Diagnoses Current Active Problems: Current Active and Chronic Problems (Last Reviewed 02/26/18 @ 09:04 by Alexander Koehler MD) Exacerbation of ulcerative colitis (Acute) Reason(s) for Visit for Discharge Instructions: Transfer to [facility] for gastroenterology review You will use the following diet at home:: Clear liquid Your liquids should be the consistency of: Regular/Thin Discharge Activity: Return to Normal Activity, May not drive while taking narcotic pain medications. May resume sexual activity in: No Restrictions Call your doctor if you observe: Fever of 101 or Higher, Coldness, Increased Pain, Inability to have a bowel movement, Shortness of breath, Dizziness, Fainting spells, Chest pain Allergies/Adverse Reactions: Allergies metoclopramide [From Reglan] Allergy (Verified 02/23/18 10:39) Other NEUROMUSCULAR PROBLEMS amoxicillin [From Augmentin] Adverse Reaction (Verified 02/23/18 10:39) Nausea/Vom/Diarrhea clavulanic acid [From Augmentin] Adverse Reaction (Verified 02/23/18 10:39) Nausea/Vom/Diarrhea Medications to take at Discharge Acetaminophen [Tylenol Extra Strength] 500 - 1,000 mg PO Q6H PRN PRN 02/25/18 Diphenoxylate/Atrop [Lomotil] 2 tab PO PRN PRN 02/25/18 Eszopiclone 1 mg PO QHS 02/25/18 Ondansetron [Zofran Odt] 4 mg PO 4X/DAY PRN PRN 02/25/18 Prednisone 30 mg PO DAILY 02/25/18 Primary Care Physician: Wilfred Hussein,Out of [Primary Care Provider] - Please follow up with your Primary Care Physician in: 1-2 weeks Test Results: Test results from this visit will be discussed in further detail at your follow-up appointment, if applicable. Proposed Discharge Date: 03/02/18 - Bed available at [facility]
[2018-03-02] MEDS: LORazepam 2 MG/ML Syringe 0.5 MG IV (15:59)
--- NOTE | 2018-03-02 16:01 | DCINST_ITS ---
- Discharge Diagnoses Current Active Problems: Current Active and Chronic Problems (Last Reviewed 02/26/18 @ 09:04 by Alxeander Koehler MD) Exacerbation of ulcerative colitis (Acute) Reason(s) for Visit for Discharge Instructions: Transfer to [facility] for gastroenterology review You will use the following diet at home:: Clear liquid Your liquids should be the consistency of: Regular/Thin Discharge Activity: Return to Normal Activity, May not drive while taking narcotic pain medications. May resume sexual activity in: No Restrictions Call your doctor if you observe: Fever of 101 or Higher, Coldness, Increased Pain, Inability to have a bowel movement, Shortness of breath, Dizziness, Fainting spells, Chest pain Allergies/Adverse Reactions: Allergies metoclopramide [From Reglan] Allergy (Verified 02/23/18 10:39) Other NEUROMUSCULAR PROBLEMS amoxicillin [From Augmentin] Adverse Reaction (Verified 02/23/18 10:39) Nausea/Vom/Diarrhea clavulanic acid [From Augmentin] Adverse Reaction (Verified 02/23/18 10:39) Nausea/Vom/Diarrhea Medications to take at Discharge Acetaminophen [Tylenol Extra Strength] 500 - 1,000 mg PO Q6H PRN PRN 02/25/18 Diphenoxylate/Atrop [Lomotil] 2 tab PO PRN PRN 02/25/18 Eszopiclone 1 mg PO QHS 02/25/18 Ondansetron [Zofran Odt] 4 mg PO 4X/DAY PRN PRN 02/25/18 Prednisone 30 mg PO DAILY 02/25/18 Primary Care Physician: Wilfred Hussein,Out of [Primary Care Provider] - Please follow up with your Primary Care Physician in: 1-2 weeks Test Results: Test results from this visit will be discussed in further detail at your follow- up appointment, if applicable. Proposed Discharge Date: 03/02/18 - Bed available at [facility]
--- NOTE | 2018-03-02 16:01 | PCM.DC.SUM ---
Discharge Date and Diagnosis - Problem List Patient Problems: Active and Suspected Problems (Last Reviewed 02/26/18 @ 09:04 by Alexander Koehler MD) Exacerbation of ulcerative colitis (Acute) Date of Admission: 02/25/18 Date of Discharge: 03/02/18 - When bed available at [facility] - Primary Discharge Diagnosis Active and Suspected Problems (Last Reviewed 02/26/18 @ 09:04 by Alexander Koehler MD) Exacerbation of ulcerative colitis (Acute) - Secondary Discharge Diagnosis Chronic Problems (Last Reviewed 02/26/18 @ 09:04 by Alexander Koehler MD) Endometritis (Chronic) Hospital Course and Treatment Solomon Fontenot Operations: None Procedures: None Summary of Care Provided: Patient is a 32-year-old female with a history of ulcerative colitis (recently started on Entyvio) who was admitted for an ulcerative colitis flare consistent with abdominal pain, hematochezia, nausea and vomiting. Despite IV steroids and pain medications, patient had continued to have such symptoms during her initial hospitalization. Consult Dr. Greer and recommended that she go to [facility] for colorectal surgeon for possible surgical intervention. When this was brought up with the patient patient refused as she wishes a second opinion by gastroenterology and get established. Patient currently has no interest in surgical interventions. Since patient is not improving with TPN, continues to have a large amount of pain, and do not have gastroenterology here will transfer patient out to [facility] for second opinion. Dr. Gee was graciousness enough to accept the patient to [facility] branch and gastroenterology will see her as an outpatient. Patient seems to have an extreme amount of anxiety would not be not recommended to see possible counselor about current stresses. Patient has been maintained on TPN, IV Flagyl, ciprofloxacin, Solu-Medrol 60 IV every 8, mesalamine. Nutrition: TPN, clear liquids, Ensure clear Medications reviewed with the patient. Risks, benefits, alternatives, side effects, potential complications and dangers of medications discussed. Patient wishes to utilize these agents despite risk. A signed medical consent/advisement form regarding narcotic medications and a side medication agreement are located in the patient's chart. Current Medications Generic Name Dose Route Start Last Admin Trade Name Freq PRN Reason Stop Dose Admin Acetaminophen 650 mg 02/25/18 21:37 Tylenol PO Q6H PRN PRN Mild Pain (1-3)/Temp > 100.7 F Calamine/Phenol 1 applic 02/27/18 10:00 03/02/18 14:35 Calmoseptine Ointment TOPICAL 1 applicatio 4X/DAY MONICA Administration Protocol Diphenhydramine HCl 25 mg 02/27/18 12:23 03/02/18 14:22 Benadryl IV 25 mg Q6H PRN PRN Administration ITCHING Hydromorphone HCl 0.5 - 1 mg 02/27/18 12:22 03/02/18 11:28 Dilaudid Inj IV 1 mg Q3H PRN PRN Administration SEVERE PAIN (6-10/10) Hydromorphone HCl 0.5 - 1 mg 02/28/18 01:48 03/02/18 14:23 Dilaudid Inj IV 1 mg Q3H PRN PRN Administration SEVERE PAIN (6-10/10) Ciprofloxacin 400 mg in 200 mls @ 200 mls/hr 02/27/18 22:00 03/02/18 09:29 Cipro IV 200 mls/hr Q12 MONICA Administration Metronidazole 500 mg in 100 mls @ 100 mls/hr 02/27/18 14:00 03/02/18 14:45 Flagyl IV 100 mls/hr Q8 MONICA Administration Pantoprazole Sodium 40 mg/ 110 mls @ 330 mls/hr 02/28/18 10:00 03/02/18 09:29 Sodium Chloride IV 330 mls/hr Q24 MONICA Administration Insulin Human Lispro 0 unit 03/01/18 18:00 03/02/18 11:49 Humalog Kwikpen (Bkc) SC Not Given Q6 MONICA Protocol Lorazepam 0.5 mg 03/02/18 15:39 03/02/18 15:59 Ativan IV 0.5 mg Q4H PRN PRN Administration ANXIETY Mesalamine 400 mg 02/26/18 18:00 03/02/18 14:35 Delzicol PO 400 mg 4X/DAY MONICA Administration Methylprednisolone 60 mg 02/27/18 14:00 03/02/18 14:36 Solu-Medrol IV 60 mg Q8 MONICA Administration Nutritional Formula (Lactose Free) 120 ml 03/01/18 18:00 03/02/18 14:35 Ensure Clear PO 120 ml 4X/DAY MONICA Administration Ondansetron HCl 4 mg 02/25/18 21:37 03/02/18 14:22 Zofran IV 4 mg Q6H PRN PRN Administration NAUSEA/VOMITING Ondansetron HCl 8 mg 02/27/18 12:42 Zofran Odt PO Q6H PRN PRN NAUSEA Oxycodone HCl 5 - 10 mg 02/25/18 21:37 02/27/18 08:54 Oxyir PO 5 mg Q4H PRN PRN Administration MOD-SEVERE PAIN (4-10/10) Promethazine HCl 25 mg 02/28/18 13:26 03/02/18 15:59 Phenergan IV 25 mg Q4H PRN PRN Administration NAUSEA/VOMITING Sodium Chloride 5 - 30 ml 02/25/18 22:05 03/02/18 06:58 IV 20 ml UD PRN Administration SALINE FLUSH Chart is dictated with benefits officer software. Errors may occur in dictation that may change providers meaning. This note was generated with [employer] dictation software. It may contain incorrect words, spelling, and punctuation that were not noted in checking the note before signing. Below is prior results and consultation from surgery: CT scan: MR#: [id number] Acct: [id number] Name: KADEN MCCRARY Shant Rep #: [id number] : 1985 F 32 From: Letty Mendenhall MD PCP: OUT OF TOWN DOCTOR Status: ADM IN Study: Abdomen/Pelvis W IV Cont ONLY Date of Exam: 02/27/18 Exam# [id number] Ordering Dr: Sonya Patel MD STUDY: CT ABDOMEN AND PELVIS WITH CONTRAST REASON FOR EXAM: Female, 32 years old. Abdominal pain. History of ulcerative colitis. RADIATION DOSAGE (If Supplied By Facility): CTDIvol = ( 9.74 ) mGy, DLP = ( 232.83 ) mGycm TECHNIQUE: Transaxial images were obtained from the dome of the diaphragm to the symphysis pubis without oral contrast. 100 ml of Isovue 300 contrast was administered. Sagittal and coronal images were reconstructed. Individualized dose optimization techniques were used for this CT. COMPARISON: None. FINDINGS: The visualized lung bases are unremarkable. The visualized portions of the heart are within normal limits. Normal liver. There are surgical clips in the gallbladder fossa consistent with a prior cholecystectomy. Normal spleen. Normal pancreas. Normal bilateral adrenal glands. Normal right kidney. Normal left kidney. The aorta is normal in caliber. There is moderate wall thickening of the descending and sigmoid colon with mild haziness of the surrounding mesentery. Findings are consistent with infectious or inflammatory colitis. There is no bowel obstruction. There is mild free fluid in the pelvis. There is no free air or organized collection. Normal urinary bladder. Normal visualized uterus. There is a 1.7 cm fat density lesion in the right adnexa containing a 0.6 cm calcification. This is most consistent with ovarian dermoid. Normal abdominal wall. Normal osseous structures. CT/Abdomen/Pelvis W IV Cont ONLY IMPRESSION: 1. Thick-walled distal colon consistent with infectious or inflammatory colitis. Findings are consistent with clinical history of ulcerative colitis. No perforation or collection. 2. Mild free fluid in the pelvis. 3. A 1.7 cm right ovarian dermoid. 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 History of Ulcerative colitis. Severe malnutrition. Failed multiple outpatient medications. Plan: Discussed patient with Dr. Fontenot. Patient would like to stay and give the medication a chance to work prior to transfer. It is recommended if patient stays she start on TPN to assist with the malnutrition. It is being recommended that the patient be transferred to a tertiary facility (i.e. [facility]) where gastroenterology and colorectal surgery is available. Patient has already been established with colorectal at [facility]. It has been discussed with the patient that she has failed multiple outpatient medications for ulcerative colitis and may need further surgical intervention to assist with her current disease. Not to mention the patient has become malnourished secondary to her ulcerative colitis symptoms. It is in the patient's best interest to have definitive surgery. At this time, we are not planning surgical intervention. Thank you for allowing us to participate in this patient's care. Please reconsult if needed. My recommendations will be available via electronic medical records. Patient Problems: Active and Suspected Problems (Last Reviewed 02/26/18 @ 09:04 by Alexander Koehler MD) Exacerbation of ulcerative colitis (Acute) Subjective: Patient seen and examined having a lot of anxiety still having large amounts of abdominal pain and diarrhea - Physical Exam General: Alert, Oriented x3, Cooperative HEENT: Atraumatic, PERRLA, EOMI Oral: Moist Mucosa, No Gingival or Mucosal Lesions/ Ulcerations Neck: Supple, No JVD, Trachea Midline Lungs: Clear to auscultation, No rhonchi, No wheeze, No rales Cardiovascular: Regular rate, Normal S1, Normal S2 Abdomen: Soft, Non-Distended, Passing Flatus, Hypoactive Bowel Sounds, Tender Extremities: No clubbing, No cyanosis, No edema Skin: No rashes, No breakdown Musculoskeletal: No Tenderness to Palpation of Joints or Extremities, No Muscle Wasting Lymphatic: No Cervical, Supraclavicular, or Inguinal Adenopathy Neurological: Cranial nerves II-XII grossly intact, Neuro grossly intact Psych/Mental Status: Normal Affect, Appropriate, Alert and oriented to time, place, person, mood and affect Vital Signs Temp Pulse Resp BP Pulse Ox 97.7 F L 88 18 140/104 H 99 03/02/18 09:00 03/02/18 09:00 03/02/18 09:00 03/02/18 09:00 03/02/18 09:00 Oxygen Delivery Method Room Air Weight: 41.957 kg Body Mass Index (BMI) 14.5 Intake and Output for Last 24 Hours 02/28/18 03/01/18 03/02/18 23:59 23:59 23:59 Intake Total 4468 / 4468 4548 / 4548 2167.9 / 2167.9 Output Total 1250 / 1250 2900 / 2900 3000 / 3000 Balance 3218 / 3218 1648 / 1648 -832.1 / -832.1 Laboratory Tests Past 24 Hrs 03/02/18 03/02/18 05:30 05:30 WBC 7.9 RBC 3.45 L Hgb 9.7 L Hct 31.3 L MCV 90.7 MCH 28.1 MCHC 31.0 L RDW 13.7 RDW Differential 45.2 H Plt Count 313 MPV 8.8 Immature Gran % (Auto) 0.600 Neut % (Auto) 81.1 H Lymph % (Auto) 10.8 L [place] % (Auto) 7.5 Eos % (Auto) 0.0 Baso % (Auto) 0.0 Absolute Neuts (auto) 6.4 Absolute Lymphs (auto) 0.85 Total Counted Not Reportable Sodium 140 Potassium 3.8 Chloride 102 Carbon Dioxide 33.0 H Anion Gap 5 BUN 10 Creatinine 0.55 Estim Creat Clear Calc 98.16 Est GFR (MDRD) Af Amer 164 Est GFR (MDRD) Non-Af 135 BUN/Creatinine Ratio 18.1 Glucose 134 H Calcium 8.3 L Phosphorus 2.4 L Magnesium 2.0 Total Bilirubin 0.30 AST 15 ALT 18 Alkaline Phosphatase 81 Total Protein 6.6 Albumin 3.4 Globulin 3.2 Albumin/Globulin Ratio 1.1 POC Glucose 03/02/18 03/02/18 03/02/18 11:36 05:09 00:32 POC Glucose 148 H 148 H 148 H 03/01/18 17:10 POC Glucose 137 H Discharge Diet: No Restrictions - Clear liquids and TPN Discharge Activity: Return to Normal Activity, May not drive while taking narcotic pain medications. May resume sexual activity in: No Restrictions Call your doctor if you observe: Fever of 101 or Higher, Coldness, Increased Pain, Inability to have a bowel movement, Shortness of breath, Dizziness, Fainting spells, Chest pain Home Medications: Medications to take at Discharge Acetaminophen [Tylenol Extra Strength] 500 - 1,000 mg PO Q6H PRN PRN 02/25/18 Diphenoxylate/Atrop [Lomotil] 2 tab PO PRN PRN 02/25/18 Eszopiclone 1 mg PO QHS 02/25/18 Ondansetron [Zofran Odt] 4 mg PO 4X/DAY PRN PRN 02/25/18 Prednisone 30 mg PO DAILY 02/25/18 Primary Care Physician: Wilfred Hussein,Out of [Primary Care Provider] - Please follow up with your Primary Care Physician in: 1-2 weeks Disposition: Acute care Hospital Patient Condition:: Fair Medical Necessity - Tobacco Use Smoking Status: Never smoker Meaningful Use Info Meaningful Use Diagnoses (Choose all that apply): None applicable Code Visit Inpatient E&M: 99104 Disch Hosp
--- NOTE | 2018-03-02 16:09 | DS.PCM_ITS ---
Discharge Date and Diagnosis - Problem List Patient Problems: Active and Suspected Problems (Last Reviewed 02/26/18 @ 09:04 by Alexander Koehler MD) Exacerbation of ulcerative colitis (Acute) Date of Admission: 02/25/18 Date of Discharge: 03/02/18 - When bed available at [facility] - Primary Discharge Diagnosis Active and Suspected Problems (Last Reviewed 02/26/18 @ 09:04 by Alexander Koehler MD) Exacerbation of ulcerative colitis (Acute) - Secondary Discharge Diagnosis Chronic Problems (Last Reviewed 02/26/18 @ 09:04 by Alexander Koehler MD) Endometritis (Chronic) Hospital Course and Treatment Solomon Fontenot Operations: None Procedures: None Summary of Care Provided: Patient is a 32-year-old female with a history of ulcerative colitis (recently started on Entyvio) who was admitted for an ulcerative colitis flare consistent with abdominal pain, hematochezia, nausea and vomiting. Despite IV steroids and pain medications, patient had continued to have such symptoms during her initial hospitalization. Consult Dr. Greer and recommended that she go to [facility] or colorectal surgeon for possible surgical intervention. When this was brought up with the patient patient refused as she wishes a second opinion by gastroenterology and get established. Patient currently has no interest in surgical interventions. Since patient is not improving with TPN, continues to have a large amount of pain, and do not have gastroenterology here will transfer patient out to [facility] for second opinion. Dr. Gee was graciousness enough to accept the patient to [facility] branch and gastroenterology will see her as an outpatient. Patient seems to have an extreme amount of anxiety would not be not recommended to see possible counselor about current stresses. Patient has been maintained on TPN, IV Flagyl, ciprofloxacin, Solu-Medrol 60 IV every 8, mesalamine. Nutrition: TPN, clear liquids, Ensure clear Medications reviewed with the patient. Risks, benefits, alternatives, side effects, potential complications and dangers of medications discussed. Patient wishes to utilize these agents despite risk. A signed medical consent/advisement form regarding narcotic medications and a side medication agreement are located in the patient's chart. Current Medications Generic Name Dose Route Start Last Admin Trade Name Freq PRN Reason Stop Dose Admin Acetaminophen 650 mg 02/25/18 21:37 Tylenol PO Q6H PRN PRN Mild Pain (1-3)/Temp > 100.7 F Calamine/Phenol 1 applic 02/27/18 10:00 03/02/18 14:35 Calmoseptine Ointment TOPICAL 1 applicatio 4X/DAY MONICA Administration Protocol Diphenhydramine HCl 25 mg 02/27/18 12:23 03/02/18 14:22 Benadryl IV 25 mg Q6H PRN PRN Administration ITCHING Hydromorphone HCl 0.5 - 1 mg 02/27/18 12:22 03/02/18 11:28 Dilaudid Inj IV 1 mg Q3H PRN PRN Administration SEVERE PAIN (6-10/10) Hydromorphone HCl 0.5 - 1 mg 02/28/18 01:48 03/02/18 14:23 Dilaudid Inj IV 1 mg Q3H PRN PRN Administration SEVERE PAIN (6-10/10) Ciprofloxacin 400 mg in 200 mls @ 200 mls/hr 02/27/18 22:00 03/02/18 09:29 Cipro IV 200 mls/hr Q12 MONICA Administration Metronidazole 500 mg in 100 mls @ 100 mls/hr 02/27/18 14:00 03/02/18 14:45 Flagyl IV 100 mls/hr Q8 MONICA Administration Pantoprazole Sodium 40 mg/ 110 mls @ 330 mls/hr 02/28/18 10:00 03/02/18 09:29 Sodium Chloride IV 330 mls/hr Q24 MONICA Administration Insulin Human Lispro 0 unit 03/01/18 18:00 03/02/18 11:49 Humalog Kwikpen (Bkc) SC Not Given Q6 MONICA Protocol Lorazepam 0.5 mg 03/02/18 15:39 03/02/18 15:59 Ativan IV 0.5 mg Q4H PRN PRN Administration ANXIETY Mesalamine 400 mg 02/26/18 18:00 03/02/18 14:35 Delzicol PO 400 mg 4X/DAY MONICA Administration Methylprednisolone 60 mg 02/27/18 14:00 03/02/18 14:36 Solu-Medrol IV 60 mg Q8 MONICA Administration Nutritional Formula (Lactose Free) 120 ml 03/01/18 18:00 03/02/18 14:35 Ensure Clear PO 120 ml 4X/DAY MONICA Administration Ondansetron HCl 4 mg 02/25/18 21:37 03/02/18 14:22 Zofran IV 4 mg Q6H PRN PRN Administration NAUSEA/VOMITING Ondansetron HCl 8 mg 02/27/18 12:42 Zofran Odt PO Q6H PRN PRN NAUSEA Oxycodone HCl 5 - 10 mg 02/25/18 21:37 02/27/18 08:54 Oxyir PO 5 mg Q4H PRN PRN Administration MOD-SEVERE PAIN (4-10/10) Promethazine HCl 25 mg 02/28/18 13:26 03/02/18 15:59 Phenergan IV 25 mg Q4H PRN PRN Administration NAUSEA/VOMITING Sodium Chloride 5 - 30 ml 02/25/18 22:05 03/02/18 06:58 IV 20 ml UD PRN Administration SALINE FLUSH Chart is dictated with patient manager software. Errors may occur in dictation that may change providers meaning. This note was generated with [employer] dictation software. It may contain incorrect words, spelling, and punctuation that were not noted in checking the note before signing. Below is prior results and consultation from surgery: CT scan: MR#: [id number] Acct: [id number] Name: KADEN MCCRARY Shant Rep #: [id number] : 1985 F 32 From: Letty Mendenhall MD PCP: OUT OF TOWN DOCTOR Status: ADM IN Study: Abdomen/Pelvis W IV Cont ONLY Date of Exam: 02/27/18 Exam# [id number] Ordering Dr: Sonay Patel MD STUDY: CT ABDOMEN AND PELVIS WITH CONTRAST REASON FOR EXAM: Female, 32 years old. Abdominal pain. History of ulcerative colitis. RADIATION DOSAGE (If Supplied By Facility): CTDIvol = ( 9.74 ) mGy, DLP = ( 232.83 ) mGycm TECHNIQUE: Transaxial images were obtained from the dome of the diaphragm to the symphysis pubis without oral contrast. 100 ml of Isovue 300 contrast was administered. Sagittal and coronal images were reconstructed. Individualized dose optimization techniques were used for this CT. COMPARISON: None. FINDINGS: The visualized lung bases are unremarkable. The visualized portions of the heart are within normal limits. Normal liver. There are surgical clips in the gallbladder fossa consistent with a prior cholecystectomy. Normal spleen. Normal pancreas. Normal bilateral adrenal glands. Normal right kidney. Normal left kidney. The aorta is normal in caliber. There is moderate wall thickening of the descending and sigmoid colon with mild haziness of the surrounding mesentery. Findings are consistent with infectious or inflammatory colitis. There is no bowel obstruction. There is mild free fluid in the pelvis. There is no free air or organized collection. Normal urinary bladder. Normal visualized uterus. There is a 1.7 cm fat density lesion in the right adnexa containing a 0.6 cm calcification. This is most consistent with ovarian dermoid. Normal abdominal wall. Normal osseous structures. CT/Abdomen/Pelvis W IV Cont ONLY IMPRESSION: 1. Thick-walled distal colon consistent with infectious or inflammatory colitis. Findings are consistent with clinical history of ulcerative colitis. No perforation or collection. 2. Mild free fluid in the pelvis. 3. A 1.7 cm right ovarian dermoid. 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 History of Ulcerative colitis. Severe malnutrition. Failed multiple outpatient medications. Plan: Discussed patient with Dr. Fontenot. Patient would like to stay and give the medication a chance to work prior to transfer. It is recommended if patient stays she start on TPN to assist with the malnutrition. It is being recommended that the patient be transferred to a tertiary facility (i.e. [facility]) where gastroenterology and colorectal surgery is available. Patient has already been established with colorectal at [facility]. It has been discussed with the patient that she has failed multiple outpatient medications for ulcerative colitis and may need further surgical intervention to assist with her current disease. Not to mention the patient has become malnourished secondary to her ulcerative colitis symptoms. It is in the patient's best interest to have definitive surgery. At this time, we are not planning surgical intervention. Thank you for allowing us to participate in this patient's care. Please reconsult if needed. My recommendations will be available via electronic medical records. Patient Problems: Active and Suspected Problems (Last Reviewed 02/26/18 @ 09:04 by Alexander Koehler MD) Exacerbation of ulcerative colitis (Acute) Subjective: Patient seen and examined having a lot of anxiety still having large amounts of abdominal pain and diarrhea - Physical Exam General: Alert, Oriented x3, Cooperative HEENT: Atraumatic, PERRLA, EOMI Oral: Moist Mucosa, No Gingival or Mucosal Lesions/ Ulcerations Neck: Supple, No JVD, Trachea Midline Lungs: Clear to auscultation, No rhonchi, No wheeze, No rales Cardiovascular: Regular rate, Normal S1, Normal S2 Abdomen: Soft, Non-Distended, Passing Flatus, Hypoactive Bowel Sounds, Tender Extremities: No clubbing, No cyanosis, No edema Skin: No rashes, No breakdown Musculoskeletal: No Tenderness to Palpation of Joints or Extremities, No Muscle Wasting Lymphatic: No Cervical, Supraclavicular, or Inguinal Adenopathy Neurological: Cranial nerves II-XII grossly intact, Neuro grossly intact Psych/Mental Status: Normal Affect, Appropriate, Alert and oriented to time, place, person, mood and affect Vital Signs Temp Pulse Resp BP Pulse Ox 97.7 F L 88 18 140/104 H 99 03/02/18 09:00 03/02/18 09:00 03/02/18 09:00 03/02/18 09:00 03/02/18 09:00 Oxygen Delivery Method Room Air Weight: 41.957 kg Body Mass Index (BMI) 14.5 Intake and Output for Last 24 Hours 02/28/18 03/01/18 03/02/18 23:59 23:59 23:59 Intake Total 4468 / 4468 4548 / 4548 2167.9 / 2167.9 Output Total 1250 / 1250 2900 / 2900 3000 / 3000 Balance 3218 / 3218 1648 / 1648 -832.1 / -832.1 Laboratory Tests Past 24 Hrs 03/02/18 03/02/18 05:30 05:30 WBC 7.9 RBC 3.45 L Hgb 9.7 L Hct 31.3 L MCV 90.7 MCH 28.1 MCHC 31.0 L RDW 13.7 RDW Differential 45.2 H Plt Count 313 MPV 8.8 Immature Gran % (Auto) 0.600 Neut % (Auto) 81.1 H Lymph % (Auto) 10.8 L [place] % (Auto) 7.5 Eos % (Auto) 0.0 Baso % (Auto) 0.0 Absolute Neuts (auto) 6.4 Absolute Lymphs (auto) 0.85 Total Counted Not Reportable Sodium 140 Potassium 3.8 Chloride 102 Carbon Dioxide 33.0 H Anion Gap 5 BUN 10 Creatinine 0.55 Estim Creat Clear Calc 98.16 Est GFR (MDRD) Af Amer 164 Est GFR (MDRD) Non-Af 135 BUN/Creatinine Ratio 18.1 Glucose 134 H Calcium 8.3 L Phosphorus 2.4 L Magnesium 2.0 Total Bilirubin 0.30 AST 15 ALT 18 Alkaline Phosphatase 81 Total Protein 6.6 Albumin 3.4 Globulin 3.2 Albumin/Globulin Ratio 1.1 POC Glucose 03/02/18 03/02/18 03/02/18 11:36 05:09 00:32 POC Glucose 148 H 148 H 148 H 03/01/18 17:10 POC Glucose 137 H Discharge Diet: No Restrictions - Clear liquids and TPN Discharge Activity: Return to Normal Activity, May not drive while taking narcotic pain medications. May resume sexual activity in: No Restrictions Call your doctor if you observe: Fever of 101 or Higher, Coldness, Increased Pain, Inability to have a bowel movement, Shortness of breath, Dizziness, Fainting spells, Chest pain Home Medications: Medications to take at Discharge Acetaminophen [Tylenol Extra Strength] 500 - 1,000 mg PO Q6H PRN PRN 02/25/18 Diphenoxylate/Atrop [Lomotil] 2 tab PO PRN PRN 02/25/18 Eszopiclone 1 mg PO QHS 02/25/18 Ondansetron [Zofran Odt] 4 mg PO 4X/DAY PRN PRN 02/25/18 Prednisone 30 mg PO DAILY 02/25/18 Primary Care Physician: Wilfred Hussein,Out of [Primary Care Provider] - Please follow up with your Primary Care Physician in: 1-2 weeks Disposition: Acute care Hospital Patient Condition:: Fair Medical Necessity - Tobacco Use Smoking Status: Never smoker Meaningful Use Info Meaningful Use Diagnoses (Choose all that apply): None applicable Code Visit Inpatient E&M: 66913 Disch Hosp
[2018-03-02 17:11] LABS: Bedside Glucose 120 mg/dL (70-110)
== END 2018-03-02 17:02 | disposition short-term general hospital (02) | DRG 385 ==
LOC: ED 19:25 → MS3 20:50
PROVIDERS: Family Medicine; Admitting Provider Hospitalist; Emergency Provider Emergency Medicine; Visit Provider Internal Medicine
DX: K51.90 Ulcerative colitis, unspecified, without complications (principal); E43 Unspecified severe protein-calorie malnutrition; Z68.1 Body mass index [BMI] 19.9 or less, adult; D62 Acute posthemorrhagic anemia; Z90.49 Acquired absence of other specified parts of digestive tract
CPT/HCPCS: 36415; 36569; 71045; 74177; 80048; 80053; 80076; 81001; 82040; 82962; 83690; 83735; 84100; 84134; 84703; 85025; 85610; 85652; 86140; 97802; 99282; J1756; J7030; J7040; J7050; J7120; P9047; Q9967; A4216; J0744; J2405; J3380